=== PATIENT | male | born 1950 | race Caucasian/White ===

== ENCOUNTER → 2018-08-31 | Outpatient (CLI) | payer MEDICARE ==
--- NOTE | 2018-08-31 10:37 | REP ---
HISTORY: Contusion. There is evidence of an old healed distal tibial fracture. There is no acute fracture. The mortise is intact. Electronically Signed by Edwardo Villeda DO 08/31/2018 10:47 A
--- NOTE | 2018-08-31 10:38 | REP ---
HISTORY: Contusion. The bones are demineralized. Degenerative changes seen throughout the foot. There is no acute fracture. Electronically Signed by Edwardo Villeda DO 08/31/2018 10:47 A
== END ==
LOC: M WUC 08:22
PROVIDERS: ATTEND Physician Assistant
DX: S90.01XA Contusion of right ankle, initial encounter (principal); S90.31XA Contusion of right foot, initial encounter; Y92.9 Unspecified place or not applicable; Y93.9 Activity, unspecified

== ENCOUNTER → 2019-02-07 | Outpatient (CLI) | payer MEDICARE ==
[2019-02-07 18:02] LABS: BASO % 0.3 % (0.0-1.0); EOS # 0.1 10^3/uL (0.0-0.5); EOS % 1.2 % (0.0-3.0); HEMATOCRIT 44.5 % (42.0-52.0); HEMOGLOBIN 14.8 g/dl (13.5-17.5); LYMPH # 1.6 10^3/uL (1.5-5.0); LYMPH % 14.4 % (24.0-44.0); MEAN CORPUSCULAR HEMOGLOBIN 31.9 pg (27.0-33.0); MEAN CORPUSCULAR HGB CONC 33.3 g/dl (32.0-36.5); MEAN CORPUSCULAR VOLUME 95.9 fl (80.0-96.0); MONO # 0.6 10^3/uL (0.0-0.8); MONO % 5.3 % (0.0-5.0); NEUTROPHILS # 8.9 10^3/uL (1.5-8.5); NEUTROPHILS % 78.5 % (36.0-66.0); PLATELET COUNT, AUTOMATED 206 10^3/uL (150-450); RED BLOOD COUNT 4.64 10^6/uL (4.30-6.10); WHITE BLOOD COUNT 11.4 10^3/uL (4.0-10.0)
[2019-02-07 18:28] LABS: ALBUMIN 4.5 GM/DL (3.2-5.2); ALT/SGPT 22 U/L (12-78); BILIRUBIN,TOTAL 0.8 MG/DL (0.2-1.0); BLOOD UREA NITROGEN 14 MG/DL (7-18); CALCIUM LEVEL 10.3 MG/DL (8.8-10.2); CARBON DIOXIDE LEVEL 27 MEQ/L (21-32); CHLORIDE LEVEL 107 MEQ/L (98-107); CPK CREATINE PHOSPHOKINASE 72 U/L (39-308); CREATININE FOR GFR 0.86 MG/DL (0.70-1.30); GLOMERULAR FILTRATION RATE > 60.0 (>42); GLUCOSE, FASTING 107 MG/DL (70-100); LIPASE 112 U/L (73-393); POTASSIUM SERUM 4.6 MEQ/L (3.5-5.1); SODIUM LEVEL 140 MEQ/L (136-145)
[2019-02-10 14:12] LABS: Lyme Disease IgG/IgM Antibodie <0.91 ISR (0.00-0.90); Lyme Disease IgM Ab Quantitati <0.80 index (0.00-0.79)
== END ==
LOC: M WUC 16:40
PROVIDERS: ATTEND Physician Assistant
DX: R10.9 Unspecified abdominal pain (principal)

== ENCOUNTER → 2019-02-16 | Outpatient (CLI) | payer MEDICARE ==
[~2019-02-16] MED LIST: PROHANCE 279.3MG/ML 15ML VIAL (A9576) As Ordered ONE; PROHANCE 279.3MG/ML 5ML VIAL (A9576) As Ordered ONE
--- NOTE | 2019-02-16 18:03 | REP ---
Two views orbits/skull: 02/16/2019. Indication: MRI clearance. Comparison: None. Findings: No radiopaque foreign bodies are present to preclude the patient from having the ordered MRI study. No acute osseous or soft tissue abnormalities are detected. Impression: The patient is cleared for MRI with regard to intracranial or orbit metal. Electronically Signed by Juan Bruno DO 02/16/2019 05:54 P
--- NOTE | 2019-02-17 14:05 | REP ---
MRI brain: 02/16/2019. 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 Comparison: 12/17/2012. Technique: Multiplanar short and long TR sequences of the brain were obtained including post-gadolinium images. 20 ml IV ProHance were administered. Findings: The enhancing mass centered within the right cavernous sinus that extends along the lesser wing of the sphenoid, incisura of the tentorium and into the sella remains stable. Loss of the right ICA flow void is again noted. Postoperative sequelae on the right are noted with minimal encephalomalacia/gliosis surrounding the resection cavity of the anterior right temporal lobe. There are no areas of restricted diffusion to suggest an acute infarction. No new areas of pathologic gadolinium enhancement are present. Mild diffuse volume loss is present. There are multiple areas of elevated CT signal throughout the cerebral hemisphere white matter. This is a nonspecific finding, but most consistent with sequelae of chronic microangiopathic ischemic disease. Impression: Stable enhancing neoplasm centered within the right cavernous sinus as described. Reportedly a meningioma. Postoperative sequelae. No acute intracranial process. Volume loss and sequelae of chronic microangiopathic ischemic disease. Electronically Signed by Juan Bruno DO 02/17/2019 01:57 P
== END ==
LOC: M RAD 16:58
PROVIDERS: ATTEND Urology
DX: C61 Malignant neoplasm of prostate (principal); C79.31 Secondary malignant neoplasm of brain; I67.82 Cerebral ischemia
CPT/HCPCS: 70553; A9576

== ENCOUNTER 2020-03-20 13:09 | Inpatient (IN) | payer MEDICARE ==
[~2020-03-20] VITALS: Ht 175.3 cm; Wt 99.1 kg
[2020-03-20] MEDS: SIMVASTATIN 40 MG TAB PO SCH (09:00)
[2020-03-20] MEDS: OMEPRAZOLE 20 MG CAP PO SCH (09:00)
[2020-03-20] MEDS ORDERED: ECOT81TA5 PO (13:38)
[2020-03-20] MEDS ORDERED: PRED5TA PO (13:38)
[2020-03-20] MEDS ORDERED: OMEP-218 PO (13:38)
[2020-03-20] MEDS ORDERED: LITH300C PO (13:38)
[2020-03-20] MEDS ORDERED: [UNRECOGNIZED DRUG - CODE] PO (13:38)
[2020-03-20] MEDS ORDERED: SIMV40TA20 PO (13:38)
[2020-03-20 14:05] LABS: BASO # 0.1 10^3/uL (0.0-0.2); BASO % 0.3 % (0.0-1.0); EOS # 0.2 10^3/uL (0.0-0.5); EOS % 0.7 % (0.0-3.0); HEMATOCRIT 46.2 % (42.0-52.0); HEMOGLOBIN 15.5 g/dl (13.5-17.5); LYMPH % 9.5 % (24.0-44.0); MEAN CORPUSCULAR HEMOGLOBIN 30.9 pg (27.0-33.0); MEAN CORPUSCULAR HGB CONC 33.5 g/dl (32.0-36.5); MONO # 1.9 10^3/uL (0.0-0.8); MONO % 9.1 % (0.0-5.0); NEUTROPHILS # 16.8 10^3/uL (1.5-8.5); NEUTROPHILS % 79.7 % (36.0-66.0); PLATELET COUNT, AUTOMATED 201 10^3/uL (150-450); RED BLOOD COUNT 5.02 10^6/uL (4.30-6.10); WHITE BLOOD COUNT 21.1 10^3/uL (4.0-10.0)
[2020-03-20 14:14] LABS: INR 0.95; PROTHROMBIN TIME 12.9 SECONDS (12.5-14.3)
[2020-03-20 14:31] LABS: ALBUMIN 3.8 GM/DL (3.2-5.2); ALT/SGPT 19 U/L (12-78); BILIRUBIN,DIRECT 0.4 MG/DL (0.0-0.2); BILIRUBIN,TOTAL 1.6 MG/DL (0.2-1.0); BLOOD UREA NITROGEN 10 MG/DL (7-18); CALCIUM LEVEL 9.4 MG/DL (8.8-10.2); CARBON DIOXIDE LEVEL 25 MEQ/L (21-32); CHLORIDE LEVEL 108 MEQ/L (98-107); GLOMERULAR FILTRATION RATE > 60.0 (>42); GLUCOSE, FASTING 112 MG/DL (70-100); LIPASE 52 U/L (73-393); POTASSIUM SERUM 2.8 MEQ/L (3.5-5.1); SODIUM LEVEL 139 MEQ/L (136-145)
[2020-03-20] MEDS ORDERED: ISOVUE-370 76% 100ML VIAL As Ordered ONE (14:38)
[2020-03-20] MEDS ORDERED: KCL 10MEQ/100ML SWI (KRUN) 10 MEQ in IV 1 EA IV ONE (14:45)
--- NOTE | 2020-03-20 15:06 | REP ---
INDICATION: abd pain, leukocytosis r/o infectious process. COMPARISON: None. TECHNIQUE: Helical scanning was acquired and 4 mm axial images are re-formatted. Coronal and sagittal MPR images were generated and reviewed. The contrast enhancement dose is 100 mL of intravenous Isovue 370. 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 There is a noncalcified nodule in the lingula at the left lung base measuring 10 mm in diameter. A 2nd tiny subpleural nodule noncalcified is visible in the right middle lobe. A granulomatous calcification is visible in the right middle lobe as well. Lung bases are otherwise clear. The liver shows diffuse fatty infiltration with area of fat sparing near the gallbladder. There is a hypervascular enhancing nodule in the right lobe of the liver posteriorly measuring 1.7 cm in greatest diameter. The gallbladder is dilated and has wall thickening and wall enhancement with pericholecystic fluid suggestive of cholecystitis. There is pericholecystic fat streaking as well. No biliary ductal dilation is observed. Pancreas is unremarkable. Normal adrenal glands are seen bilaterally. There are granulomatous calcifications in the spleen. Kidneys enhance symmetrically. There is a small cyst in the lower pole of the right kidney. No hydronephrosis is seen. No renal calculus is observed. A normal appendix is seen in the right lower abdomen. Small and large intestinal bowel loops are unremarkable. There is a small quantity of fluid in the pelvic reflections. The prostate is not seen suggesting previous prostatectomy although the patient does not report this. There is left colonic diverticulosis without CT evidence of diverticulitis. No abdominal wall defect is seen. There is evidence of bilateral gynecomastia moderate in degree. IMPRESSION: 1. Findings consistent with acute cholecystitis. The gallbladder is distended shows diffuse wall thickening and contrast enhancement its wall. There is pericholecystic fat streaking and pericholecystic fluid. There is a tiny sliver of fluid in the pelvic reflections. 2. Diffuse fatty infiltration of the liver. 3. 1.7 cm hypervascular liver lesion consistent with hemangioma. This could be further characterized by ultrasound or MRI scanning. 4. Granulomatous calcifications in the spleen and liver and right lung base. 5. There are 2 noncalcified pulmonary nodules visible 1 in the lingula at the left lung base and the other in the right middle lobe. The lingular nodule is 10 mm in greatest diameter. Consider chest CT study for further evaluation and baseline imaging. 6. Bilateral gynecomastia. <Electronically signed by Torito Marinelli > 03/20/20 [id number]
[2020-03-20] MEDS ORDERED: PIPERACILLIN/TAZOBACTAM SOD 3.375 GM in D5W MINI-BAG PLUS 50 ML IV ONE (15:15)
[2020-03-20] MEDS ORDERED: PROMETHAZINE INJ 25 MG/ML VIAL (J2550) IV ONE (15:30)
[2020-03-20] MEDS ORDERED: MORPHINE 4 MG/ML 1ML VIAL/SYRINGE (J2270) IV ONE (15:30)
[2020-03-20] MEDS ORDERED: NS 1,000 ML IV SCH ×2 (15:30→16:30)
[2020-03-20 15:47] LABS: MAGNESIUM LEVEL 1.9 MG/DL (1.8-2.4)
[2020-03-20] MEDS ORDERED: CENT1TAB PO (15:51)
[2020-03-20] MEDS ORDERED: ONDANSETRON 4MG/2ML VIAL IV PRN (16:15)
[2020-03-20] MEDS: PIPERACILLIN/TAZOBACTAM SOD 3.375 GM in D5W MINI-BAG PLUS 50 ML IV SCH ×2 (16:39→21:29)
[2020-03-20] MEDS: KCL 10MEQ/100ML SWI (KRUN) 10 MEQ in IV 1 EA IV SCH ×3 (16:40→20:16)
--- NOTE | 2020-03-20 17:25 | REP ---
INDICATION: Pre-op. COMPARISON: Comparison chest x-ray January 29, 2016. TECHNIQUE: Two views.. FINDINGS: Mild cardiomegaly is observed. Pulmonary vasculature is is not increased. Right hemidiaphragm is slightly elevated unchanged. Pleural angles are sharp. No infiltrate is seen. No significant bony abnormality. IMPRESSION: Mild cardiomegaly. Otherwise no acute disease.. <Electronically signed by Torito Marinelli > 03/20/20 [id number]
--- NOTE | 2020-03-20 17:33 | HPEPDOC ---
General Date of Admission Mar 20, 2020 Date of Service: Mar 20, 2020 Attending Physician: KRYSTAL BRIGHT DO Chief Complaint The patient is a 70-year-old male admitted with a reason for visit of Back Inj ury. Source: Patient History of Present Illness Mr. Espinoza is a 70-year-old male with prostate cancer is here for back pain and found to have acute cholecystitis. He doesn't remember when his abdominal pain initially started. He says that fatty foods sometimes mixes pains worse. 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 He did some heavy lifting and hurt his back. In addition, abdominal pain worsened. The pain was right-sided and rated as 8 out of 10 pain. The pain radiated towards the center and towards his back. He became more nauseous and was unable to tolerate food yesterday or today. There is no improvement in his symptoms, and he decided to come to the ED. While in the ED, total bilirubin was elevated and CT of abdomen and pelvis demonstra manoj acute cholecystitis without CBD dilatation. Then, general surgery was consulted. Plan for surgery tomorrow. NPO except for meds. I spoke with the patient he denied any history of heart attacks, CHF, stroke, or diabetes. He also denied any history of A. fib. He doesn't climb stairs, but is able to walk from one end of [facility] to the other without shortness of breath or chest pain. Denies any active chest pain or dyspnea. We'll order chest x-ray to complete preoperative workup Home Medications Scheduled Abiraterone Acetate (Zytiga) 500 Mg Tablet, 1,000 MG PO DAILY, (Reported) TAKE ON AN EMPTY STOMACH [place] Carbonate ([place] Carbonate) 300 Mg Capsule, 600 MG PO BID, (Reported) Multivit-Min/FA/Lycopen/Lutein (Centrum Silver Tablet) 1 Each Tablet, 1 TAB PO DAILY, (Reported) Omeprazole (Omeprazole) 20 Mg Capsule.dr, 20 MG PO DAILY, (Reported) Prednisone (Prednisone) 5 Mg Tablet, 5 MG PO BID, (Reported) Simvastatin (Simvastatin) 40 Mg Tablet, 40 MG PO DAILY, (Reported) USUALLY AROUND LUNCH Scheduled PRN Aspirin (Ecotrin) 81 Mg Tablet.dr, 162 MG PO DAILY PRN for PAIN, (Reported) Allergies Coded Allergies: No Known Allergies (Unverified , 03/20/20) Past Medical History Medical History 1. Prostate Ca 2. Cancer behind right eye 3. Hyperlipidemia 4. Bipolar Surgical History 1. Brain surgery Family History Mother still alive, she's 92 year old. Denies past medical history Father , at the age of 82. Denies past medical history Social History * Smoker: former Smoker (Quit 28 year ago, smoked for 10 years, a couple packs per day) Alcohol: Denies (Former drinker, quit 28 years ago too) Drugs: denies A-FIB/CHADSVASC A-FIB History Current/History of A-Fib/PAF?: No Review of Systems Constitutional: Denies: Chills, Fever Eyes: Denies: Vision change ENT: Denies: Sore Throat Skin: Denies: Rash Pulmonary: Denies: Dyspnea Cardiovascular: Denies: Chest Pain, Lt Headedness Gastrointestinal: Reports: Nausea, Abdominal Pain (Right upper quadrant, radiates towards the center) Genitourinary: Denies: Dysuria Hematologic: Denies: Bruising Endocrine: Denies: Polydipsia, Polyphagia Physical Examination General Exam: Positive: Alert, Cooperative Eye Exam: Positive: EOMI; Negative: Sclera icteric ENT Exam: Positive: Atraumatic Neck Exam: Positive: Supple Chest Exam: Positive: Clear to auscultation Heart Exam: Positive: Rate Normal, Regular Rhythm Abdomen Exam: Positive: Normal bowel sounds, Soft, Tenderness Extremity Exam: Negative: Edema Neuro Exam: Positive: Normal Speech, Cranial Nerves 3-12 NL Psych Exam: Positive: Mental status NL, Mood NL, Oriented x 3 Vital Signs Vital Signs Date Time Temp Pulse Resp B/P (MAP) Pulse Ox O2 Delivery O2 Flow Rate FiO2 03/20/20 16:12 18 03/20/20 13:39 Room Air 03/20/20 13:39 03/20/20 13:10 98.7 89 97 Laboratory Data Labs 24H Laboratory Tests 2 03/20/20 13:45: Immature Granulocyte % (Auto) 0.7, Neutrophils (%) (Auto) 79.7H, Lymphocytes (%) (Auto) 9.5L, Monocytes (%) (Auto) 9.1H, Eosinophils (%) (Auto) 0.7, Basophils (%) (Auto) 0.3, Neutrophils # (Auto) 16.8H, Lymphocytes # (Auto) 2.0, Monocytes # (Auto) 1.9H, Eosinophils # (Auto) 0.2, Basophils # (Auto) 0.1, Nucleated Red Blood Cells % (auto) 0.0, Prothrombin Time 12.9, Prothromb Time International Ratio 0.95, Anion Gap 6L, Glomerular Filtration Rate > 60.0, Calcium Level 9.4, Magnesium Level 1.9, Total Bilirubin 1.6H, Direct Bilirubin 0.4H, Aspartate Am joey Transf (AST/SGOT) 10, Alanine Aminotransferase (ALT/SGPT) 19, Alkaline Phosphatase 59, Total Protein 7.0, Albumin 3.8, Albumin/Globulin Ratio 1.2, Lipase 52L 03/20/20 13:53: Urine Color YELLOW, Urine Appearance HAZY, Urine pH 6.0, Urine Specific [place] 1.014, Urine Protein NEGATIVE, Urine Glucose (UA) NEGATIVE, Urine Ketones NEGATIVE, Urine Blood 1+H, Urine Nitrite NEGATIVE, Urine Bilirubin NEGATIVE, Urine Urobilinogen 4.0H, Urine Leukocyte Esterase NEGATIVE, Urine WBC (Auto) 6H, Urine RBC (Auto) 6H, Urine Hyaline Casts (Auto) 0, Urine Bacteria (Auto) NEGATIVE, Urine Squamous Epithelial Cells 1, Urine Mucus (Auto) SMALL, Urine Sperm (Auto) 03/20/20 15:24: Lactic Acid Level 2.1*H 03/20/20 15:44: CBC/BMP Laboratory Tests 03/20/20 13:45 Microbiology Microbiology 03/20/20 Blood Culture, Received Pending 03/20/20 Blood Culture, Received Pending Assessment/Plan Mr. Espinoza is a 70-year-old male with prostate cancer is here for back pain and found to have acute cholecystitis. General surgery, Dr. Hernandez has been consulted and is planning for surgery tomorrow. NPO at this time due to nausea and inability to tolerate food. Otherwise, he has hypokalemia. EKG did not demonstrate atrial fibrillation, but PVC which may be secondary to electrolyte imbalance. Will replete electrolytes and optimize patient for surgery. RCRI score of 0 (not high risk surgery, denies ischemic heart disease, CHF, CVA, no insulin or CKD). Ambulates without chest pain or dyspnea. No active chest pain or dyspnea. Will order CXR to complete work up. If CXR is clear, there is no c ontraindications to surgery. Plan / VTE VTE Prophylaxis Ordered?: Yes Plan Plan 1. Acute cholecystitis -Right upper quadrant pain with tenderness. CT abd consistent with cholecystitis -CBD not dilatated, AST and ALT not elevated -Plan for surgery tomorrow by Dr. Hernandez -NPO except medication -Zosyn for antibiotics -Zofran for nausea -IVF 2. Hypokalemia -Has not been able to tolerate food -Replete with K-run -Magnesium normal -Monitor on tele 3. Bipolar -Continue lithium -Monitor renal function 4. Hyperlipidemia -Continue simvastatin 5. GERD -Continue omeprazole 6. DVT ppx -SCD and TEDs Disposition: Plan for surgery tomorrow KRYSTAL BRIGHT DO Mar 20, 2020 16:44
[2020-03-20 17:50] VITALS: BP 118/79
--- NOTE | 2020-03-20 19:38 | ECGEPIP ---
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 Order Number: [id number] Reading MD: Macario Burch Measurements Intervals [place] Rate: 82 P: MS: 0 QRS: -11 QRSD: 148 T: 130 QT: 409 QTc: 479 Interpretive Statements PROBABLE SINUS RHYTHM W PACS LEFT BUNDLE BRANCH BLOCK LEFT AXIS DEVIATION Electronically Signed on 03-20-2020 19:38:16 EST by Macario Burch
[2020-03-20] MEDS: predniSONE 5 MG TAB PO SCH (20:16)
[2020-03-20] MEDS: LITHIUM CARBONATE 300 MG CAP PO SCH (20:16)
[2020-03-20] MEDS: ACETAMINOPHEN TAB 650MG DOSE (2X325MG) PO PRN (20:59)
[2020-03-20] MEDS: KCL 40MEQ in NS 1000ML 1,000 ML IV SCH (21:29)
[2020-03-20 22:00] VITALS: BP 128/70
[2020-03-21 00:47] LABS: BLOOD UREA NITROGEN 12 MG/DL (7-18); CALCIUM LEVEL 8.7 MG/DL (8.8-10.2); CARBON DIOXIDE LEVEL 23 MEQ/L (21-32); CHLORIDE LEVEL 111 MEQ/L (98-107); CREATININE FOR GFR 0.84 MG/DL (0.70-1.30); GLOMERULAR FILTRATION RATE > 60.0 (>42); GLUCOSE, FASTING 124 MG/DL (70-100); POTASSIUM SERUM 3.5 MEQ/L (3.5-5.1); SODIUM LEVEL 140 MEQ/L (136-145)
[2020-03-21] MEDS: PIPERACILLIN/TAZOBACTAM SOD 3.375 GM in D5W MINI-BAG PLUS 50 ML IV SCH ×4 (04:09→21:29)
[2020-03-21] MEDS: ACETAMINOPHEN TAB 650MG DOSE (2X325MG) PO PRN ×2 (04:59→21:29)
[2020-03-21 05:55] LABS: HEMATOCRIT 41.9 % (42.0-52.0); HEMOGLOBIN 13.7 g/dl (13.5-17.5); MEAN CORPUSCULAR HEMOGLOBIN 30.2 pg (27.0-33.0); MEAN CORPUSCULAR HGB CONC 32.7 g/dl (32.0-36.5); MEAN CORPUSCULAR VOLUME 92.5 fl (80.0-96.0); PLATELET COUNT, AUTOMATED 170 10^3/uL (150-450); RED BLOOD COUNT 4.53 10^6/uL (4.30-6.10); WHITE BLOOD COUNT 11.8 10^3/uL (4.0-10.0)
[2020-03-21 06:00] VITALS: BP 144/84
[2020-03-21 06:27] LABS: ALBUMIN 3.4 GM/DL (3.2-5.2); ALT/SGPT 170 U/L (12-78); BILIRUBIN,TOTAL 2.1 MG/DL (0.2-1.0); BLOOD UREA NITROGEN 13 MG/DL (7-18); CALCIUM LEVEL 8.9 MG/DL (8.8-10.2); CARBON DIOXIDE LEVEL 23 MEQ/L (21-32); CHLORIDE LEVEL 113 MEQ/L (98-107); CREATININE FOR GFR 0.84 MG/DL (0.70-1.30); GLOMERULAR FILTRATION RATE > 60.0 (>42); GLUCOSE, FASTING 103 MG/DL (70-100); POTASSIUM SERUM 3.6 MEQ/L (3.5-5.1); SODIUM LEVEL 141 MEQ/L (136-145); TOTAL PROTEIN 6.7 GM/DL (6.4-8.2)
[2020-03-21] MEDS ORDERED: MORPHINE 2 MG/ML 1ML VIAL (J2270) IV PRN (06:45)
[2020-03-21] MEDS ORDERED: POTASSIUM CHLORIDE 10 MEQ SR TABLET PO ONE (08:00)
[2020-03-21 08:59] LABS: BILIRUBIN,DIRECT 0.6 MG/DL (0.0-0.2)
[2020-03-21] MEDS ORDERED: PNEUMOCOCCAL VACCINE 0.5ML SYRINGE (PNEUMOVAX 23) IM ONE (09:00)
[2020-03-21] MEDS ORDERED: MORPHINE 2 MG/ML 1ML VIAL (J2270) IV ONE ×2 (09:30)
[2020-03-21] MEDS ORDERED: SODIUM CHLORIDE 0.9% INJ 10 ML SYR IV ONE (10:00)
[2020-03-21] MEDS ORDERED: INDOCYANINE GREEN 25MG VIAL (IC-GREEN) IV ONE (10:00)
[2020-03-21] MEDS: predniSONE 5 MG TAB PO SCH ×2 (10:03→20:33)
[2020-03-21] MEDS: OMEPRAZOLE 20 MG CAP PO SCH (10:03)
[2020-03-21] MEDS: SIMVASTATIN 40 MG TAB PO SCH (10:04)
[2020-03-21] MEDS: LITHIUM CARBONATE 300 MG CAP PO SCH ×2 (10:04→20:33)
[2020-03-21] MEDS: KCL 40MEQ in NS 1000ML 1,000 ML IV SCH ×2 (10:05→20:34)
--- NOTE | 2020-03-21 10:28 | IPNPDOC ---
Text Note Date of Service The patient was seen on 03/21/20. NOTE SUBJECTIVE: No acute events overnight, including telemetry. Patient did require PRN morphine for pain earlier this morning. Anticipating surgery around 1200 today. Pt continues to report RUQ pain with posterior radiation. Pain is responsive to morphine IV. Denies CP, SOB. Denies any n/v/d/c. No difficulty urinating. OBJECTIVE: Vitals: Please see below Gen.: Patient is interviewed and examined in his hospital room. Patient simply seated upright in his bedside chair, in no acute distress. 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 HEENT: Normocephalic, atraumatic, EOMI, sclera nonicteric without conjunctival injection or pallor. Ptosis noted. His membranes are moist. CVS: Regular rate and rhythm, without murmur. Respiratory: Clear to auscultation bilaterally both anterior and posterior lung campbell. Abdomen: Continue right upper quadrant tenderness with some posterior radiation. No apparent guarding or rigidity. No masses or organomegaly present. Soft and nontender and remaining quadrants. Bowel sounds are present. Extremities: No edema, no calf tenderness bilaterally. Posterior tibial and radial pulses are 2+ bilaterally. Neuro: CN III-XII grossly intact, strength intact, no dysphasia or dysarthria ASSESSMENT: Mr. Espinoza is a 70-year-old male with prostate cancer is here for back pain and found to have acute cholecystitis. General surgery, Dr. Hernandez has been consulted and is planning for surgery tomorrow. NPO at this time due to nausea and inability to tolerate food. Otherwise, he has hypokalemia. EKG did not demonstrate atrial fibrillation, but PVC which may be secondary to electrolyte imbalance. Will replete electrolytes and optimize patient for surgery. RCRI score of 0 (not high risk surgery, denies ischemic heart disease, CHF, CVA, no insulin or CKD). Ambulates without chest pain or dyspnea. No active chest pain or dyspnea. PLAN: #Acute cholecystitis, -Patient continues with right upper quadrant pain and tenderness. CT abdomen performed yesterday is consistent with cholecystitis. -Cholecystectomy planned for [address] Hernandez. -IV morphine for pain -NPO except meds #Transaminitis -AST/ALT of 127/170 -Likely secondary to persistent cholecystitis. -Question whether patient's presentation is regressed to choledocholithiasis. -Continue to monitor LFTs. #Hypokalemia -Pt placed on tele for monitoring. No events overnight. -Normalized, will continue to monitor -Mg WNL #Bipolar -Continue lithium -Monitor renal function #Hyperlipidemia -Continue simvastatin #GERD -Continue omeprazole DVT: SCD, TEDs in anticipation of surgery CODE STATUS: Full Code DISPOSITION: Pending post-op improvement. VS,Fishbone, I+O VS, Fishbone, I+O Laboratory Tests 03/20/20 13:45 03/20/20 23:53 03/21/20 05:13 Vital Signs Date Time Temp Pulse Resp B/P (MAP) Pulse Ox O2 Delivery O2 Flow Rate FiO2 03/21/20 07:02 16 03/21/20 06:00 99.0 60 144/84 (104) 98 Room Air I&O- Last 24 Hours up to 6 AM 03/21/20 06:00 Intake Total 1275 ml Output Total 400 ml Balance 875 ml GME ATTESTATION GME ATTESTATION My faculty preceptor for this patient encounter was physically present during the encounter and was fully available. All aspects of the patient interview, examination, medical decision making process, and medical care plan development were reviewed and approved by the faculty preceptor. The faculty preceptor is aware and concurs with the plan as stated in the body of this note and will attest to such by his/her cosignature. ATTENDING NOTE I, Saul Fagan, saw and evaluated the patient. I agree with the finding and the plan of care as documented in the resident note. BULL THOMSON DO Mar 21, 2020 10:28 SAUL FAGAN DO Mar 21, 2020 19:24
--- NOTE | 2020-03-21 11:26 | CR.PDOC ---
General Surgery Consultation Date of Consultation 03/21/20 History and Physical CONSULT REPORT FOR: Dr. Fagan (hospitalist ervin) REASON FOR CONSULTATION: abdominal pain, cholecystitis HISTORY OF PRESENT ILLNESS: I was asked to consult on Mr. Espinoza is a 70-year-old gentleman from [place] who presented with about a 2 day history of severe epigastric and right upper quadrant pain and discomfort. He reports that this started happening about mid evening. He felt nauseated and actually tried to make himself throw up with some relief of his symptoms with the pain. Through the evening and through to the crib tender. No fevers or chills reported. No prior episodes of similar symptoms being reported. Due to the severity of the discomfort he presented to the emergency room. He was found to have evidence of acute cholecystitis on CT. PAST MEDICAL HISTORY: 1. history of prostate cancer s/p prostatectomy, radiation now on hormonal therapy 2. history of meningioma s/p cranitomy 3. hyperlipidemia. 4. bipolar disorder PAST SURGICAL HISTORY: INCLUDES: 1. robotic assisted radical prostatectomy 2. craniotomy resection of meningioma x 2 ALLERGIES: Please see below. HOME MEDICATIONS: Please see below. REVIEW OF SYSTEMS: GENERAL: Denies chills, reports weight gain, reports feeling febrile yesterday. HEENT: Denies blurred vision and double vision. Denies ear symptoms. Denies hoarseness. NECK: Denies any neck pain]. CARDIOVASCULAR: [Denies chest pain and palpitations]. MUSCULOSKELETAL: [Denies arthralgias, back pain and thrombophlebitis]. SKIN: [Denies rash]. NEUROLOGIC: [Denies headache, stroke and transient ischemic attack]. PSYCHIATRIC: [Denies anxiety and depression]. ENDOCRINE: [Denies thyroid disease]. HEMATOLOGY/ONCOLOGY: [Denies bleeding or clotting disorder]. HEART: [Denies any chest pains, palpitations, paroxysmal dyspnea, orthopnea]. PULMONARY: [Denies chronic cough, dyspnea and wheezing]. GASTROINTESTINAL: [Denies rectal bleeding, family history of colon cancer, constipation, diarrhea, dysphagia, heartburn and jaundice]. GENITOURINARY: [Denies dysuria, frequency, hematuria and nocturia]. ENDOCRINE: [Denies polydipsia, polyphagia, polyuria, heat or cold intolerance]. INFECTIOUS: [Denies any recent upper respiratory tract infection, UTI, need for use of antibiotics]. NUTRITION: [Reports good appetite]. PHYSICAL EXAMINATION: VITALS SIGNS: Please see below. GENERAL APPEARANCE:uncomfortable in appearance, dry skin. not in cardiorespiratory distress SKIN: dry, no jaundice. HEENT: right eyelid drooping, anicteric sclerae, slight depressed right parietal scalp. NECK: Supple, no thyromegaly. No obvious jugular venous distention. LUNGS: Clear to auscultation bilaterally. No wheezing appreciated. HEART: No chest wall abnormalities. Regular rate and rhythm with no murmurs appreciated. ABDOMEN: Abdomen is very protuberant and round abdomen, soft, distended. small vertical supraumbilical incision no hernia, few port sites, no hernia. Tender over right upper quadrant area and epigastric area with guarding. Positive mishra sign. . EXTREMITIES: no significant extremity edema ANCILLARIES: . LABORATORY DATA: Please see below. IMAGING STUDIES: CT scan abdomen and pelvis US gall bladder IMPRESSION AND PLAN: Acute Cholecystitis Patient symptoms consistent with acute cholecystitis. He is quite tender over the right upper quadrant area along with a diagnosis of 21,000. His LFTs remained normal save for mild elevation of the total bilirubin which is primarily indirect, thus I don't think there is involvement of the colon bile duct stone or of cholangitis. He is admitted under the hospitalist service and started IV antibiotics. He has been getting Zosyn 3.375 g IV. I'll set him up for laparoscopic cholecystectomy. If the robot is available we will use robot which will hopefully help us identify the biliary tree to avoid bile duct injury which is primary complication be are trying to avoid especially in acute gallbladder cases. I have spoken to him about scheduling him for cholecys tectomy. I discussed with the patient the details of the proposed procedure, the benefits of performing the procedure, the most common risks on doing the procedure. This may include risks of bleeding, infection, bile duct injury, bile leakage, injury to nearby bowels and blood vessels, and risks of general anesthesia. I have given him a chance to ask questions, voice out concerns. Patient has agreed to proceed Vital Signs Vital Signs Date Time Temp Pulse Resp B/P (MAP) Pulse Ox O2 Delivery O2 Flow Rate FiO2 03/21/20 09:59 18 Room Air 03/21/20 06:00 99.0 60 144/84 (104) 98 I&Os I&O- Last 24 Hours up to 6 AM 03/21/20 06:00 Intake Total 1275 ml Output Total 400 ml Balance 875 ml Laboratory Data Labs 24H Laboratory Tests 2 03/20/20 13:45: Immature Granulocyte % (Auto) 0.7, Neutrophils (%) (Auto) 79.7H, Lymphocytes (%) (Auto) 9.5L, Monocytes (%) (Auto) 9.1H, Eosinophils (%) (Auto) 0.7, Basophils (%) (Auto) 0.3, Neutrophils # (Auto) 16.8H, Lymphocytes # (Auto) 2.0, Monocytes # (Auto) 1.9H, Eosinophils # (Auto) 0.2, Basophils # (Auto) 0.1, Nucleated Red Blood Cells % (auto) 0.0, Prothrombin Time 12.9, Prothromb Time International Ratio 0.95, Anion Gap 6L, Glomerular Filtration Rate > 60.0, Calcium Level 9.4, Magnesium Level 1.9, Total Bilirubin 1.6H, Direct Bilirubin 0.4H, Aspartate Amino Transf (AST/SGOT) 10, Alanine Aminotransferase (ALT/SGPT) 19, Alkaline Phosphatase 59, Total Protein 7.0, Albumin 3.8, Albumin/Globulin Ratio 1.2, Lipase 52L 03/20/20 13:53: Urine Color YELLOW, Urine Appearance HAZY, Urine pH 6.0, Urine Specific [place] 1.014, Urine Protein NEGATIVE, Urine Glucose (UA) NEGATIVE, Urine Ketones NEGATIVE, Urine Blood 1+H, Urine Nitrite NEGATIVE, Urine Bilirubin NEGATIVE, Urine Urobilinogen 4.0H, Urine Leukocyte Esterase NEGATIVE, Urine WBC (Auto) 6H, Urine RBC (Auto) 6H, Urine Hyaline Casts (Auto) 0, Urine Bacteria (Auto) NEGATIVE, Urine Squamous Epithelial Cells 1, Urine Mucus (Auto) SMALL, Urine Sperm (Auto) 03/20/20 15:24: Lactic Acid Level 2.1*H 03/20/20 15:44: Coronavirus (COVID-19)(PCR) NEGATIVE 03/20/20 20:08: Lactic Acid Followup at 4 Hours 1.2 03/20/20 23:53: Anion Gap 6L, Glomerular Filtration Rate > 60.0, Calcium Level 8.7L 03/21/20 05:13: Anion Gap 5L, Glomerular Filtration Rate > 60.0, Calcium Level 8.9, Nucleated Red Blood Cells % (auto) 0.0, Total Bilirubin 2.1H, Direct Bilirubin 0.6H, Aspartate Amino Transf (AST/SGOT) 127H, Alanine Aminotransferase (ALT/SGPT) 170H, Alkaline Phosphatase 95, Total Protein 6.7, Albumin 3.4, Albumin/Globulin Ratio 1.0 CBC/BMP Laboratory Tests 03/20/20 13:45 03/20/20 23:53 03/21/20 05:13 Microbiology Microbiology 03/20/20 Blood Culture, Received Pending 03/20/20 Blood Culture, Received Pending Home Medications Scheduled Abiraterone Acetate (Zytiga) 500 Mg Tablet, 1,000 MG PO DAILY, (Reported) TAKE ON AN EMPTY STOMACH [place] Carbonate ([place] Carbonate) 300 Mg Capsule, 600 MG PO BID, (Reported) Multivit-Min/FA/Lycopen/Lutein (Centrum Silver Tablet) 1 Each Tablet, 1 TAB PO DAILY, (Reported) Omeprazole (Omeprazole) 20 Mg Capsule.dr, 20 MG PO DAILY, (Reported) Prednisone (Prednisone) 5 Mg Tablet, 5 MG PO BID, (Reported) Simvastatin (Simvastatin) 40 Mg Tablet, 40 MG PO DAILY, (Reported) USUALLY AROUND LUNCH Scheduled PRN Aspirin (Ecotrin) 81 Mg Tablet.dr, 162 MG PO DAILY PRN for PAIN, (Reported) Allergies Coded Allergies: No Known Allergies (Unverified , 03/20/20) NENITA PERAZA MD Mar 21, 2020 11:26
[2020-03-21] MEDS ORDERED: ROCURONIUM BROMIDE 50 MG/5 ML VIAL As Ordered ONE ×3 (12:00→15:40)
[2020-03-21] MEDS ORDERED: MIDAZOLAM INJ 2MG/2ML VIAL (J2250 PER 1MG) As Ordered ONE (12:00)
[2020-03-21] MEDS ORDERED: LIDOCAINE 2% 100MG/5ML SDV (FOR ANES.) As Ordered ONE (12:00)
[2020-03-21] MEDS ORDERED: fentaNYL 250 MCG/5 ML INJECTION (J3010) As Ordered ONE (12:00)
[2020-03-21] MEDS ORDERED: propofoL 200 MG/20 ML VIAL As Ordered ONE (12:00)
[2020-03-21] MEDS ORDERED: LIDOCAINE 1% SDV 30ML VIAL As Ordered ONE (12:19)
[2020-03-21] MEDS ORDERED: BUPIVACAINE HCL 0.25% 30ML VIAL As Ordered ONE (12:19)
[2020-03-21] MEDS ORDERED: dexameTHASONE 4 MG/ML 1ML VIAL (J1100 PER 1MG) As Ordered ONE (12:56)
[2020-03-21] MEDS ORDERED: PHENYLephrine HCL 500 MCG/5 ML (100MCG/ML) SYRINGE (J2370) As Ordered ONE ×2 (12:58→17:08)
[2020-03-21] MEDS ORDERED: ONDANSETRON 4MG/2ML VIAL As Ordered ONE (13:27)
[2020-03-21] MEDS ORDERED: ACETAMINOPHEN 1000MG 100ML IV BTL (OFIRMEV) (J0131 PER 10MG) As Ordered ONE (13:27)
[2020-03-21] MEDS ORDERED: fentaNYL 100 MCG/2 ML INJECTION (J3010) As Ordered ONE (15:40)
[2020-03-21] MEDS ORDERED: ZOSYN 3.375GM VIAL (J2543) As Ordered ONE (16:32)
[2020-03-21] MEDS ORDERED: HYDROmorphone HCL 2 MG/ML 1ML VIAL (J1170) As Ordered ONE (17:03)
[2020-03-21] MEDS ORDERED: KETOROLAC 30 MG/ML 1ML VIAL IV PRN (18:45)
[2020-03-21] MEDS ORDERED: PERCOCET 5MG/325MG TAB PO PRN ×2 (18:45→19:00)
[2020-03-21] MEDS ORDERED: METOCLOPRAMIDE INJ 10MG/2ML VIAL (J2765 PER 1) IV PRN (19:00)
[2020-03-21] MEDS ORDERED: ONDANSETRON 4MG/2ML VIAL IV PRN (19:00)
[2020-03-21] MEDS ORDERED: LR 1,000 ML IV SCH (19:00)
[2020-03-21] MEDS ORDERED: fentaNYL 100 MCG/2 ML INJECTION (J3010) IV PRN (19:00)
[2020-03-21 20:15] VITALS: BP 128/89
[2020-03-21 20:45] VITALS: BP 126/88
[2020-03-21 21:15] VITALS: BP 108/82
[2020-03-21 22:15] VITALS: BP 112/73
[2020-03-21 23:15] VITALS: BP 108/67
[2020-03-22 00:15] VITALS: BP 123/83
[2020-03-22 01:15] VITALS: BP 112/75
[2020-03-22] MEDS: KCL 40MEQ in NS 1000ML 1,000 ML IV SCH (03:00)
[2020-03-22] MEDS: PIPERACILLIN/TAZOBACTAM SOD 3.375 GM in D5W MINI-BAG PLUS 50 ML IV SCH ×4 (04:27→21:26)
[2020-03-22 06:00] VITALS: BP 116/74
[2020-03-22] MEDS ORDERED: SALIVA SUBSTITUTE(MOUTHKOTE) BTL MT PRN (06:45)
[2020-03-22 06:50] LABS: HEMATOCRIT 32.7 % (42.0-52.0); MEAN CORPUSCULAR HEMOGLOBIN 31.2 pg (27.0-33.0); MEAN CORPUSCULAR HGB CONC 33.3 g/dl (32.0-36.5); MEAN CORPUSCULAR VOLUME 93.7 fl (80.0-96.0); PLATELET COUNT, AUTOMATED 140 10^3/uL (150-450); RED BLOOD COUNT 3.49 10^6/uL (4.30-6.10); WHITE BLOOD COUNT 14.2 10^3/uL (4.0-10.0)
[2020-03-22 06:54] LABS: HEMOGLOBIN 10.9 g/dl (13.5-17.5)
[2020-03-22 07:20] LABS: ALBUMIN 2.6 GM/DL (3.2-5.2); ALT/SGPT 100 U/L (12-78); BILIRUBIN,TOTAL 1.1 MG/DL (0.2-1.0); BLOOD UREA NITROGEN 14 MG/DL (7-18); CALCIUM LEVEL 7.6 MG/DL (8.8-10.2); CARBON DIOXIDE LEVEL 23 MEQ/L (21-32); CHLORIDE LEVEL 114 MEQ/L (98-107); CREATININE FOR GFR 0.76 MG/DL (0.70-1.30); GLOMERULAR FILTRATION RATE > 60.0 (>42); GLUCOSE, FASTING 142 MG/DL (70-100); POTASSIUM SERUM 3.9 MEQ/L (3.5-5.1); SODIUM LEVEL 141 MEQ/L (136-145); TOTAL PROTEIN 5.7 GM/DL (6.4-8.2)
--- NOTE | 2020-03-22 07:28 | ROOPDOC ---
[facility] Report Of Operation Report of Operation DATE OF PROCEDURE: 03/8720 PREPROCEDURE DIAGNOSES: Acute Cholecystitis. POSTPROCEDURE DIAGNOSES: Acute over Chronic Cholecystitis, hydrops of gallbladder. PROCEDURE: Robotic Assisted Cholecystectomy with ICG use. bilateral transversus abdominis plane block with 1%lidocaine, 1/4% Marcaine, laparoscope guided SURGEON: Guerrero Hernandez MD PRODUCTION DEPARTMENT SUPERVISOR: Intraoperative consult with Dr. Kraft ANESTHESIA: General Anesthesia. ESTIMATED BLOOD LOSS: Approximately 500 mL (including bile spillage) COMPLICATIONS: none, Patient hemodynamically stable, extubated to PACU. REMARKS: 70 M admitted yesterday with sudden onset of epigastric and RUQ pain, wbc 21K evidence for inflammation of gb, no stones identified on CT. PROCEDURE NOTE: markedly thickened, distended gb, hydropic, acute inflammation , edema over chronically thickened wall, no gross perforation, very thick omentum obstructing view, mild hepatomegaly, obese, rounded abdomen. DESCRIPTION OF PROCEDURE: Patient is receiving zosyn 3.375 gm IV q 6hrs for acute cholecystits. I gave him 5 mg of ICG was given intravenously after intubation. He was brought to the operating room, laid supine on the table, compression boots placed for DVT prophylaxis. General endotracheal anesthesia started. His abdomen then prepped and draped in usual sterile fashion. Surgical timeout was performed prior to confirm right procedure, right patient identification and other necessary information prior to starting surgery. He has a very round, protuberant abdomen. Entry into the abdomen done through an incision slightly to the left of the umbilical cleft. A Veress needle was inserted with a controlled fashion. CO2 insufflation started to pressure 15 mmH g. Using the same incision an 8 mm robotic trochar was placed under direct vision of a laparoscope. The area underneath the insertion site was inspected and no injury found. With this camera postion, only the edge of the liver is seen. He has thick omentum covering all the intestines and the gallbladder. He was then placed in steep reverse Trendelenburg at about 15. The gallbladder remains covered with omentum.. His right side was tilted up to further expose the gallbladder to no avail. Under direct vision 3 more 8 mm trochars were placed along a row at level to the camera port site at the anterior axillary line, right midclavicular line and left mid clavicular line. A transversus abdominis plane block was then performed bilaterally using the lidocaine/ma rcaine mixture under laparoscopic guidance. The da Betzy robot tower was then maneuvered in place and the trochards docked to the robot. I used a prograsp, forced bipolar, and hook cautery for the procedure with a 30 robotic camera. I unscrubbed and assumed control of the camera and instruments at the surgeon's console. Operative findings: He has an enlarged liver, fatty replaced and this goes deep underneath the cavity of his costal cartilage. I repositioned him to a deeper reverse Trendelenburg to drop the liver further. Gallbladder remains not visualized covered with omentum that is inflamed. The omental adhesions were lysed with cautery to expose the fundus of the gallbladder. The gallbladder is tensely distended. Wall is thick which looks to be a combination of chronic thickness as well as severe acute inflammation with gallbladder wall edema, edema of the overlying peritoneum, duskiness of the wall and peritoneum though I did not see any areas of necrosis. This was hard to manipulate and also his omentum is obstructing my view as this was thick. I placed some cottonoids for internal retraction of the omentum. The created hole at the fundus and aspirated clear nonbilious fluid consistent with hydrops of the gallbladder. This had the gallbladder partially decompressed. This allowed me to start superior retraction of the gallbladder and slight do this I continued to lyse the omental adhesions. Even with this, pushing the gallbladder superiorly is not allowing me to visualize the neck of the gallbladder secondary to his body habitus, enlarged liver, distended gallbladder and extension of the lower costal cartilage down below as well as the thickened omentum. I switched to a top down approach to try to get more retraction of the gallbladder superiorly. Posterior wall of the gallbladder is intact but highly inflamed and adhered to the liver bed with continued oozing at the liver bed. I switched him lateral to medial and vice versa when there is too much oozing which I temporarily control with some Surgicel left at the liver bed as well as local pressure and cautery. This allowed me to get good amount of the fundus freed up for further superior retraction. With this I could barely make up the infundibulum. ICG did not help as the whole of the gallbladder did not transilluminate. The course of the colon bile duct is not visualized due to the enlargement of the gallbladder and the thickened omentum on my way. I proceeded continuing the top down approach mainly concentrating laterally as this is a safer and more accessible area. Again got met by occasional losing for which at the stop and get to the other side reseed. With this approach I was able to free up partially the midportion of the gallbladder which I then connected the previous posterior fundal dissection. After a couple of hours I was now able to visualize the fundus. This area remains distended though I could not feel any st one. At this point my thoughts are to probably perform a fenestrated in subtotal cholecystectomy to avoid possible bile duct injury. So I opened up the midportion of the gallbladder anteriorly and suctioned out more of this non- green colored clear fluid. The wall of the gallbladder appears mushy and falls apart easily which got me concerned whether it would hold any suture. Down at the lower portion of the gallbladder and infundibulum I opened up the overlying peritoneum and mostly got into the subserosal plane or I could peel off the posterior portion of the gallbladder with minimal bleeding from the liver bed. I was able to do this both laterally and medially. On this plane I was actually able to get behind the gallbladder where I think the course of the cystic duct is taken off from the neck of the gallbladder. I tried to visualize the internal opening of the cystic duct by a extending my previous anterior opening of the gallbladder even with this I could not opening itself and even with firefly there is no bilious drainage from inside of the gallbladder. I proceeded on the subserosal plane up to a point where I was getting some bleeding at the lateral lower edge of the gallbladder probably from the posterior cystic duct branch which eventually I was able to control with cautery. Over at the lower lateral edge I was able to peel off the hepatocystic lymph node and I dissected the cystic artery up high and clipped this and divided this. This allowed me to get into a medial plane to further develop what I think is the cystic duct posteriorly and connected this to my lateral dissection. At this point I called on of my coleagues to help me make sense of the anatomy. The fundus up to the midportion of the gallbladder has already been dissected off the liver bed. The lower portion of the gallbladder is mainly dissected free of the posterior cystic plate in a subserosal plane laterally and partially medially. The cystic artery has already been identified and clipped up high. I was able to get around circumferentially were I think the cystic duct meets the neck of the gallbladder. I could not proceed distally safely as I might injure the common bile duct. I have opened the lower portion anteriorly of the gallbladder to look for the internal opening of the cystic duct to no avail and I could not visualize any bilious drainage internally with firefly. No evidence of any bilious drainage externally. After confirming this finding, I decided to divide the area of the neck of the gallbladder to the point that I could be able to close this portion. This was detached from the main gallbladder and even with this I did not find any opening of the cystic duct. I closed this with a running mattress suture using a 20V LOC. I then have the left over the gallbladder which is only attached at the lower posterior cystic plate. To avoid any further bleeding I divided the posterior wall of the gallbladder and left it in situ. The mucosa was cauterized. The gallbladder was then essentially detached from the liver bed The gallbladder was placed in an Endo catch bag through the left midclavicular port. All the cottonoids and the Surgicel were removed. The liver bed was irrigated. With firefly I could not see any bilious drainage. The liver eliminates well on firefly. I scrubbed back in. The gallbladder was extracted by enlarging the port. I placed a 19 Hector drain at the liver bed for postop monitoring was coming off from the right axilla report. The left midclavicular port or the port of extraction was closed with 0 Vicryl using a Leon Rodas device area The abdomen was then deflated. All ports removed. All skin incisions closed with 4-0 Monocryl in subcuticular fashion. The drain was secured to skin with 3-0 silk. Dermabond was used for postoperative dressing. Patient remained hemodynamically stable throughout the procedure. He was successfully awakened, extubated and brought to the recovery room in stable con dition. All counts of sponges and instruments were verified correct. GUERRERO HERNANDEZ MD Mar 22, 2020 07:28
--- NOTE | 2020-03-22 09:03 | IPNPDOC ---
Text Note Date of Service The patient was seen on 03/22/20. NOTE Patient seen and examined this morning. He looks a lot more comfortable than he was preoperatively. He had this very inflamed over an acutely chronically thickened gallbladder. He underwent cholecystectomy yesterday. Overnight he has been hemodynamically stable. He has tolerated clear liquids. Vital signs MAXIMUM TEMPERATURE is 100.60 current is 98.3 at 6 AM pulse rate 65. Respiratory rate 20. Blood pressure 116/74. 93% on room air. Patient looks very comfortable. Anicteric sclerae. Very round, protuberant abdomen, mildly distended. No severe tenderness over the epigastric and right upper quadrant area. He has 3 port sites and the drain coming off from the right side. This is thin serosanguineous without bile tinge. Labs reviewed. WBC 14.2. LFTs shows improvement. Total bilirubin of 1.1 but direct fraction is only 0.4. AST 45, ALT 100 area Impression and plan: Severe acute cholecystitis, postop day 1 robotic-assisted laparoscopic cholecystectomy Continue with the antibiotics. I'll advance his diet. Continue with draining monitoring. If he does not spike any more fever, his leukocytosis normalizes and his LFTs remained improved or stable tomorrow or the next day he should be able to go home. Add like to keep the drain for continued monitoring when he goes home and he could follow up with me next week to see if he could remove the drain. VS,Fishbone, I+O VS, Fishbone, I+O Laboratory Tests 03/22/20 06:29 Vital Signs Date Time Temp Pulse Resp B/P (MAP) Pulse Ox O2 Delivery O2 Flow Rate FiO2 03/22/20 06:00 98.3 65 20 116/74 (88) 93 Room Air 03/21/20 20:00 3 I&O- Last 24 Hours up to 6 AM 03/22/20 06:00 Intake Total 4425 ml Output Total 2670 ml Balance 1755 ml NENITA PERAZA MD Mar 22, 2020 09:03
[2020-03-22] MEDS: OMEPRAZOLE 20 MG CAP PO SCH (09:55)
[2020-03-22] MEDS: LITHIUM CARBONATE 300 MG CAP PO SCH ×2 (09:55→21:25)
[2020-03-22] MEDS: predniSONE 5 MG TAB PO SCH ×2 (09:55→21:25)
[2020-03-22] MEDS: SIMVASTATIN 40 MG TAB PO SCH (09:55)
--- NOTE | 2020-03-22 11:31 | IPNPDOC ---
Text Note Date of Service The patient was seen on 03/22/20. NOTE SUBJECTIVE: She underwent uncomplicated robotic cholecystectomy with Dr. Tejeda yesterday, 03/21/20. This morning, patient reports that his pain is adequately controlled. He states that he feels better than yesterday. Denies any acute complaints including chest pain, shortness of breath or difficulty breathing. He says that his abdomen is slightly sore at the site of his drain. Overnight, patient was reported of having a Tmax of 100.6. No elevated temperatures since. Patient's diet has been advanced. He did eat breakfast difficulty. OBJECTIVE: Vitals: Please see below Gen.: She doesn't reexamine his hospital room. Patient found to be resting comfortably in bed in no acute distress. He reports that his pain is under control. HEENT: Normocephalic, atraumatic, EOMI, sclera nonicteric without conjunctival injection or pallor. Ptosis noted. His membranes are moist. CVS: Regular rate and rhythm, without murmur. Respiratory: Clear to auscultation bilaterally both anterior and posterior lung campbell. Abdomen: Soft, nontender nondistended, ALICIA drain in place in right upper quadrant of the patient's abdomen. Dressing is clean. Serosanguineous fluid is present. Port sites are also clean without drainage. No surrounding erythema. Extremities: No edema, no calf tenderness bilaterally. Posterior tibial and radial pulses are 2+ bilaterally. Neuro: CN III-XII grossly intact, strength intact, no dysphasia or dysarthria ASSESSMENT: Patient is a 68-year-old male, history of prostate cancer back pain and was found to have acute cholecystitis. Patient received appropriate pain control and general surgery was contacted. Patient underwent uncomplicated robotic cholecystectomy with Dr. Tejeda on 03/21/20. But this morning show a resolving transaminitis. Drain in place with serosanguineous output. Surgery has advance patient's diet. He is continued on antibiotics for now. We will anticipate discharge tomorrow or the next day depending lab values and clinical improvement. PLAN: #Acute cholecystitis, -CT findings consistent with Cholecystitis. S/P uncomplicated robotic cholecystectomy with Dr. Tejeda on 03/21/20. ALICIA drain in place with serosanguineous fluid. Port sites clean and dry. -Significantly improved RUQ tenderness. -WBC of 14.2, suspect reactive. Tmax of 100.6 overnight. -Continue antibiotics -Advance diet per surgery #Transaminitis -Improving this morning -AST/ALT of 127/170 perioperative yesterday, 45/100 this am. -Continue to monitor LFTs, bilirubin #Hypokalemia -Pt placed on tele for monitoring. No events overnight. -Normalized, will continue to monitor -Mg WNL #Bipolar -Continue lithium -Monitor renal function #Hyperlipidemia -Continue simvastatin #GERD -Continue omeprazole DVT: SCD, TEDs in anticipation of surgery CODE STATUS: Full Code DISPOSITION: Pending post-op improvement, stabilizing LFT. Patient will be discharged home with his ALICIA drain per surgery. Removal at outpatient follow-up. VS,Fishbone, I+O VS, Fishbone, I+O Laboratory Tests 03/22/20 06:29 Vital Signs Date Time Temp Pulse Resp B/P (MAP) Pulse Ox O2 Delivery O2 Flow Rate FiO2 03/22/20 06:00 98.3 65 20 116/74 (88) 93 Room Air 03/21/20 20:00 3 I&O- Last 24 Hours up to 6 AM 03/22/20 06:00 Intake Total 4425 ml Output Total 2670 ml Balance 1755 ml GME ATTESTATION GME ATTESTATION My faculty preceptor for this patient encounter was physically present during the encounter and was fully available. All aspects of the patient interview, examination, medical decision making process, and medical care plan development were reviewed and approved by the faculty preceptor. The faculty preceptor is aware and concurs with the plan as stated in the body of this note and will attest to such by his/her cosignature. ATTENDING NOTE Attending attestation: Patient seen and examined independently. Agree with resident's note. BULL THOMSON DO Mar 22, 2020 11:31 MARIA T GOODEN MD Mar 23, 2020 06:47
[2020-03-22 14:00] VITALS: BP 111/67
[2020-03-22 22:00] VITALS: BP 135/79
[2020-03-23] MEDS: PIPERACILLIN/TAZOBACTAM SOD 3.375 GM in D5W MINI-BAG PLUS 50 ML IV SCH ×2 (05:22→09:28)
[2020-03-23 06:00] VITALS: BP_SYST 128; BP_SYST 143; BP_DIAS 65; BP_DIAS 84
[2020-03-23 06:10] LABS: HEMATOCRIT 33.5 % (42.0-52.0); MEAN CORPUSCULAR HGB CONC 32.8 g/dl (32.0-36.5); MEAN CORPUSCULAR VOLUME 94.4 fl (80.0-96.0); PLATELET COUNT, AUTOMATED 151 10^3/uL (150-450); RED BLOOD COUNT 3.55 10^6/uL (4.30-6.10); WHITE BLOOD COUNT 13.3 10^3/uL (4.0-10.0)
[2020-03-23 06:49] LABS: ALBUMIN 2.8 GM/DL (3.2-5.2); ALT/SGPT 77 U/L (12-78); BILIRUBIN,TOTAL 0.5 MG/DL (0.2-1.0); BLOOD UREA NITROGEN 17 MG/DL (7-18); CALCIUM LEVEL 8.2 MG/DL (8.8-10.2); CARBON DIOXIDE LEVEL 25 MEQ/L (21-32); CHLORIDE LEVEL 113 MEQ/L (98-107); CREATININE FOR GFR 0.75 MG/DL (0.70-1.30); GLOMERULAR FILTRATION RATE > 60.0 (>42); GLUCOSE, FASTING 108 MG/DL (70-100); POTASSIUM SERUM 3.9 MEQ/L (3.5-5.1); SODIUM LEVEL 141 MEQ/L (136-145); TOTAL PROTEIN 6.3 GM/DL (6.4-8.2)
--- NOTE | 2020-03-23 07:25 | IPNPDOC ---
Text Note Date of Service The patient was seen on 03/23/20. NOTE Patient seen sitting up on chair, did well postoperatively. He is tolerating clear liquids Plan: advance to regular diet Continue abx. when stable go home with drain for continued postop monitoring VS,Fishbone, I+O VS, Fishbone, I+O Laboratory Tests 03/23/20 05:36 Vital Signs Date Time Temp Pulse Resp B/P (MAP) Pulse Ox O2 Delivery O2 Flow Rate FiO2 03/23/20 06:00 97.8 55 18 143/84 (103) 92 Room Air 03/21/20 20:00 3 I&O- Last 24 Hours up to 6 AM 03/23/20 06:00 Intake Total 1190 ml Output Total 1040 ml Balance 150 ml NENITA PERAZA MD Mar 23, 2020 07:25
[2020-03-23] MEDS: OMEPRAZOLE 20 MG CAP PO SCH (09:28)
[2020-03-23] MEDS: SIMVASTATIN 40 MG TAB PO SCH (09:29)
[2020-03-23] MEDS: LITHIUM CARBONATE 300 MG CAP PO SCH (09:29)
[2020-03-23] MEDS: predniSONE 5 MG TAB PO SCH (09:29)
[2020-03-23] MEDS ORDERED: AUGM875T28 PO ×2 (09:38→09:57)
--- NOTE | 2020-03-23 09:56 | DS.PDOC ---
Discharge Summary General Date of Admission Mar 20, 2020 at 16:05 Date of Discharge Mar 23, 2020 Attending Physician: MARIA T GOODEN MD Discharge Summary PROCEDURES PERFORMED DURING STAY: Robotic cholecystectomy ADMITTING DIAGNOSES: Acute cholecystitis Hypokalemia Bipolar Hyperlipidemia GERD DISCHARGE DIAGNOSES: Status post cholecystectomy Hypokalemia, resolved Liver hemangioma 2 noncalcified pulmonary nodules Bipolar Hyperlipidemia GERD COMPLICATIONS/CHIEF COMPLAINT: Acute Cholecystitis,Hypokalemia. HISTORY OF PRESENT ILLNESS: Mr. Espinoza is a 70-year-old male with prostate cancer is here for back pain and found to have acute cholecystitis. He doesn't remember when his abdominal pain initially started. He says that fatty foods sometimes mixes pains worse. 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 He did some heavy lifting and hurt his back. In addition, abdominal pain worsened. The pain was right-sided and rated as 8 out of 10 pain. The pain radiated towards the center and towards his back. He became more nauseous and was unable to tolerate food yesterday or today. There is no improvement in his symptoms, and he decided to come to the ED. While in the ED, total bilirubin was elevated and CT of abdomen and pelvis demonstrated acute cholecystitis without CBD dilatation. Then, general surgery was consulted. Plan for surgery tomorrow. NPO except for meds. HOSPITAL COURSE: Patient underwent robotic cholecystectomy the afternoon of 03/21/20. Morning labs did demonstrate a mild transaminitis. Perioperative course was unre markable. Patient's pain was well-controlled. Continued on IV Zosyn. The morning of 03/22/20, he was advanced to a regular diet. Patient tolerated this well throughout the day. Morning of discharge, patient's labs demonstrated improvement in his white count. His H&H remained stable. Potassium within normal limits. AST/ALT returned to baseline. Patient has not had any elevated temperatures overnight. He was seen by surgery who was agreeable to discharge and outpatient follow-up. Patient be discharged home on by mouth antibiotics, with his ALICIA drain in place and follow-up scheduled with surgery approximately one week. Of note, patient's CT scan did demonstrate a 1.7 hypervascular liver lesion consistent with a hemangioma. 2 noncalcified pulmonary nodules, 1 in the lingula at the left lung base and one in the right middle lobe were noted incidentally on abdomen CT. Patient is to follow-up with his primary care provider for further evaluation and management. Suggest ultrasound or MRI in regards to the hemangioma and chest CT for characterization of the pulmonary nodules. DISCHARGE MEDICATIONS: Please see below. ALLERGIES: Please see below. PHYSICAL EXAMINATION ON DISCHARGE: VITAL SIGNS: Please see below. GENERAL: Patient was interviewed and examined in his hospital room. Patient was found to be at his bedside chair, awake and alert in no acute distress. He was quite conversant, and grateful for the care he has received here in the hospital. HEENT: Normocephalic, atraumatic, EOMI, ptosis on the right, unchanged. His membranes are moist. Trachea midline, no JVD. CARDIOVASCULAR EXAMINATION: Regular rate and rhythm, normal S1 and S2 without any murmurs. RESPIRATORY EXAMINATION: Clear to auscultation bilaterally both anterior and posterior lung campbell. Good chest expansion. ABDOMINAL EXAMINATION: ALICIA drain in place in right upper abdomen. Appropriately bandaged. Dressings are clean and free of fluid or discharge. Port incisions also remained clean and dry. Abdomen slightly tender in right upper quadrant otherwise nontender nondistended no apparent guarding or rigidity. Bowel sounds are present. EXTREMITIES: No peripheral swelling/edema. No calf tenderness bilaterally. SKIN: No skin rashes or skin changes. NEUROLOGICAL EXAMINATION: Awake, alert and oriented 3. No dysarthria or dysphas ia. Moving all extremities equally. Cranial nerves 3 through 12 are grossly intact. No gait abnormalities issues. PSYCHIATRIC EXAMINATION: Mood and affect are appropriate given patient's current medical condition. LABORATORY DATA: Please see below. IMAGING: CXR (03/20/20): Mild cardiomegaly. No acute disease. Abd/Pelv (03/20/20): Findings consistent with acute cholecystitis. The gallbladder is distended and shows diffuse wall thickening in contrast enhancement in its wall. There is. Cholecystic fat streaking and pericholecystic fluid. There is a tiny sliver of fluid in the pelvic reflections. Diffuse fatty infiltration of the liver. 1.7 cm hypervascular liver lesion consistent with hemangioma. This could be further characterized by ultrasound or MRI screening. There are 2 noncalcified pulmonary nodules visible. One is in the lingula at the left lung base and the other in the right middle lobe. The lingular nodule is 10 mm in greatest diameter. Consider chest CT further evaluation and baseline imaging. Bilateral gynecomastia. PROGNOSIS: Good ACTIVITY: As tolerated DIET: Full DISPOSITION: Home with self-care Outpatient follow-up with Surgery in 1 week. ITEMS TO FOLLOWUP ON ON OUTPATIENT: You were diagnosed with Cholecystitis and underwent robotic cholecystectomy. Please take antibiotic as prescribed. Please take your home medications as prescribed. Please follow-up with your PCP for further outpatient evaluation of lung nodules and liver hemangioma identified on CT scan. Please follow-up with surgery in 1 week for removal of your drain. Please contact surgery sooner should you note "green-colored" fluid collection in your drain. Please return to the ED should you begin to experience a fever, chills or severe abdominal pain. Thank you for allowing us to participate in your care. DISCHARGE CONDITION: Stable TIME SPENT ON DISCHARGE: Greater than 35 minutes. Vital Signs/I&Os Vital Signs Date Time Temp Pulse Resp B/P (MAP) Pulse Ox O2 Delivery O2 Flow Rate FiO2 03/23/20 06:00 97.8 55 18 143/84 (103) 92 Room Air 03/21/20 20:00 3 I&O- Last 24 Hours up to 6 AM 03/23/20 06:00 Intake Total 1190 ml Output Total 1040 ml Balance 150 ml Laboratory Data Labs 24H Laboratory Tests 2 03/23/20 05:36: Nucleated Red Blood Cells % (auto) 0.0, Anion Gap 3L, Glomerular Filtration Rate > 60.0, Calcium Level 8.2L, Total Bilirubin 0.5#, Aspartate Amino Transf (AST/SGOT) 24, Alanine Aminotransferase (ALT/SGPT) 77, Alkaline Phosphatase 65, Total Protein 6.3L, Albumin 2.8L, Albumin/Globulin Ratio 0.8 CBC/BMP Laboratory Tests 03/23/20 05:36 Microbiology Microbiology 03/20/20 Blood Culture - Preliminary, Resulted No Growth after 48 hours. All Specime... 03/20/20 Blood Culture - Preliminary, Resulted No Growth after 48 hours. All Specime... Discharge Medications Scheduled Abiraterone Acetate (Zytiga) 500 Mg Tablet, 1,000 MG PO DAILY, (Reported) TAKE ON AN EMPTY STOMACH [place] Carbonate ([place] Carbonate) 300 Mg Capsule, 600 MG PO BID, (Reported) Multivit-Min/FA/Lycopen/Lutein (Centrum Silver Tablet) 1 Each Tablet, 1 TAB PO DAILY, (Reported) Omeprazole (Omeprazole) 20 Mg Capsule.dr, 20 MG PO DAILY, (Reported) Prednisone (Prednisone) 5 Mg Tablet, 5 MG PO BID, (Reported) Simvastatin (Simvastatin) 40 Mg Tablet, 40 MG PO DAILY, (Reported) USUALLY AROUND LUNCH Scheduled PRN Aspirin (Ecotrin) 81 Mg Tablet.dr, 162 MG PO DAILY PRN for PAIN, (Reported) Allergies Coded Allergies: No Known Allergies (Unverified , 03/20/20) GME ATTESTATION GME ATTESTATION My faculty preceptor for this patient encounter was physically present during the encounter and was fully available. All aspects of the patient interview, examination, medical decision making process, and medical care plan development were reviewed and approved by the faculty preceptor. The faculty preceptor is aware and concurs with the plan as stated in the body of this note and will attest to such by his/her cosignature. BULL THOMSON DO Mar 23, 2020 09:56
== END 2020-03-23 12:00 | disposition home or self-care (01) | DRG 419 ==
LOC: M ED 13:09 → M ED INP 16:05 → ENRESERV 16:55 → M MSPAV 17:49
PROVIDERS: ADMIT Internal Medicine; ATTEND Internal Medicine
PROC: 0FT44ZZ Resection of Gallbladder, Percutaneous Endoscopic Approach (ICD-10-PCS; principal; 2020-03-22)
PROC: 8E0W4CZ Robotic Assisted Procedure of Trunk Region, Percutaneous Endoscopic Approach (ICD-10-PCS; 2020-03-22)
DX: K81.0 Acute cholecystitis (principal); E87.6 Hypokalemia; K21.9 Gastro-esophageal reflux disease without esophagitis; F31.9 Bipolar disorder, unspecified; E78.5 Hyperlipidemia, unspecified; R91.8 Other nonspecific abnormal finding of lung field; D18.09 Hemangioma of other sites; Z79.82 Long term (current) use of aspirin; Z79.899 Other long term (current) drug therapy; Z85.46 Personal history of malignant neoplasm of prostate

== ENCOUNTER 2020-03-30 09:36 | Inpatient (IN) | payer MEDICARE ==
[~2020-03-30] VITALS: Ht 175.3 cm; Wt 95.5 kg
[~2020-03-30 09:36] MED LIST changes: +AUGM875T28 PO; +CENT1TAB PO; +ECOT81TA5 PO; +LITH300C PO; +OMEP-218 PO; +PRED5TA PO; -PROHANCE 279.3MG/ML 15ML VIAL (A9576) As Ordered ONE; -PROHANCE 279.3MG/ML 5ML VIAL (A9576) As Ordered ONE; +SIMV40TA20 PO; +[UNRECOGNIZED DRUG - CODE] PO
[2020-03-30] MEDS ORDERED: ISOVUE-370 76% 100ML VIAL As Ordered ONE (10:25)
[2020-03-30 10:32] LABS: BASO # 0.1 10^3/uL (0.0-0.2); BASO % 0.5 % (0.0-1.0); EOS # 0.1 10^3/uL (0.0-0.5); EOS % 0.8 % (0.0-3.0); HEMATOCRIT 40.7 % (42.0-52.0); LYMPH % 13.3 % (24.0-44.0); MEAN CORPUSCULAR HEMOGLOBIN 29.5 pg (27.0-33.0); MEAN CORPUSCULAR HGB CONC 31.9 g/dl (32.0-36.5); MEAN CORPUSCULAR VOLUME 92.3 fl (80.0-96.0); MONO # 1.2 10^3/uL (0.0-0.8); MONO % 7.8 % (0.0-5.0); NEUTROPHILS # 11.1 10^3/uL (1.5-8.5); NEUTROPHILS % 75.3 % (36.0-66.0); PLATELET COUNT, AUTOMATED 288 10^3/uL (150-450); RED BLOOD COUNT 4.41 10^6/uL (4.30-6.10); WHITE BLOOD COUNT 14.7 10^3/uL (4.0-10.0)
[2020-03-30 10:57] LABS: ALBUMIN 3.6 GM/DL (3.2-5.2); ALT/SGPT 34 U/L (12-78); BILIRUBIN,DIRECT 0.2 MG/DL (0.0-0.2); BILIRUBIN,TOTAL 0.5 MG/DL (0.2-1.0); BLOOD UREA NITROGEN 23 MG/DL (7-18); CALCIUM LEVEL 9.6 MG/DL (8.8-10.2); CARBON DIOXIDE LEVEL 28 MEQ/L (21-32); CHLORIDE LEVEL 104 MEQ/L (98-107); CREATININE FOR GFR 0.72 MG/DL (0.70-1.30); GLOMERULAR FILTRATION RATE > 60.0 (>42); GLUCOSE, FASTING 97 MG/DL (70-100); LIPASE 195 U/L (73-393); POTASSIUM SERUM 4.3 MEQ/L (3.5-5.1); SODIUM LEVEL 139 MEQ/L (136-145); TOTAL PROTEIN 6.6 GM/DL (6.4-8.2)
--- NOTE | 2020-03-30 12:24 | REP ---
INDICATION: n/v, reported "green" drainage in ALICIA tube, 6 days post op. COMPARISON: Abdomen and pelvis CT dated 03/20/2020. TECHNIQUE: Abdomen and pelvis CT IV contrast, without bowel FINDINGS: There are lung nodules in the visualized lower lung campbell similar to the comparison study. There is a surgical drainage catheter in the gallbladder fossa as an interval change the patient having had an interval cholecystectomy. There is no focal fluid collection in the gallbladder fossa to suggest abscess or hematoma. There is mild fat stranding in the gallbladder fossa. There is no pneumoperitoneum or ascites. The pancreas is unremarkable. The spleen measures 16 cm AP diameter and is enlarged. There are calcified splenic granulomas. This is unchanged. The adrenals and kidneys are unchanged. Tiny cyst in lower pole right kidney is unchanged. Abdominal aorta is unremarkable. There is no periaortic adenopathy or mass. There is no bowel distention or obstruction. Pelvis: The appendix is again unremarkable. The small volume of pelvic ascites identified previously is no longer present. There are occasional diverticula in the sigmoid colon as previously. There is no CT evidence of diverticulitis. IMPRESSION: There is a surgical drain in the gallbladder fossa. There are no focal fluid collections in the gallbladder fossa to suggest abscess or hematoma. There is mild mesenteric fat stranding in the gallbladder fossa, likely postsurgical change. There is no pneumoperitoneum or ascites. The previous small volume of ascites in the pelvis has resolved. There is sigmoid colon diverticulosis without diverticulitis. This is unchanged. No pneumoperitoneum. Splenic granulomas, unchanged. There is no bowel distention or obstruction. There are lung nodules in the visualized lower lung campbell similar to the prior study. Please refer to the recommendations concerning these nodules on the prior study. <Electronically signed by Marcio Morgan > 03/30/20 [id number]
[2020-03-30] MEDS ORDERED: AMOX875T2 PO (14:06)
[2020-03-30] MEDS ORDERED: ONDANSETRON 4MG/2ML VIAL IV PRN (14:15)
[2020-03-30 17:01] VITALS: BP 156/82
--- NOTE | 2020-03-30 19:04 | REP ---
INDICATION: r/o bile leak. COMPARISON: CT 03/30/2020. TECHNIQUE/RADIOTRACER AND DOSE: Following the intravenous administration of 5.8 mCi technetium 99 M mebrofenin, multiple images of the abdomen are performed for 1 hour. FINDINGS: The patient has had a recent cholecystectomy. A surgical drain is in place with the tip in the region of the gallbladder fossa. Biliary excretion of radiotracer is noted, and there is biliary to bowel transit at 15 minutes post injection. Activity extends distally through the small bowel throughout the exam. At 45-50 minutes post injection of small focus of radiotracer activity is seen in the gallbladder fossa. At that same time a linear focus of activity is seen in the right lower quadrant. On the right lateral view 60 minutes post injection curvilinear activity is seen in the surgical drain. There is also activity in the drainage bag at the end of the drainage tube. IMPRESSION: Findings consistent with a bile leak in the gallbladder fossa with radiotracer activity seen in the gallbladder fossa, surgical drain and drainage bag. <Electronically signed by Marcio Paredes > 03/30/20 1900
[2020-03-30] MEDS: SIMVASTATIN 40 MG TAB PO SCH (20:04)
[2020-03-30] MEDS: LR 1,000 ML IV SCH (20:05)
[2020-03-30] MEDS: LITHIUM CARBONATE 300 MG CAP PO SCH (21:09)
[2020-03-30] MEDS: predniSONE 5 MG TAB PO SCH (21:09)
[2020-03-30 22:00] VITALS: BP 151/84
[2020-03-31] MEDS: PERCOCET 5MG/325MG TAB PO PRN ×5 (00:06→23:29)
[2020-03-31 06:00] VITALS: BP 141/69
[2020-03-31] MEDS: LR 1,000 ML IV SCH ×2 (06:17→12:21)
[2020-03-31] MEDS: ENOXAPARIN 40MG/0.4ML SYRINGE (J1650 PER 10MG) SC SCH (07:44)
[2020-03-31 07:50] LABS: BASO % 0.3 % (0.0-1.0); EOS # 0.1 10^3/uL (0.0-0.5); EOS % 0.8 % (0.0-3.0); HEMATOCRIT 34.7 % (42.0-52.0); HEMOGLOBIN 11.4 g/dl (13.5-17.5); LYMPH # 1.5 10^3/uL (1.5-5.0); LYMPH % 13.9 % (24.0-44.0); MEAN CORPUSCULAR HEMOGLOBIN 30.6 pg (27.0-33.0); MEAN CORPUSCULAR HGB CONC 32.9 g/dl (32.0-36.5); MONO # 0.7 10^3/uL (0.0-0.8); MONO % 6.7 % (0.0-5.0); NEUTROPHILS # 8.1 10^3/uL (1.5-8.5); NEUTROPHILS % 77.3 % (36.0-66.0); PLATELET COUNT, AUTOMATED 253 10^3/uL (150-450); RED BLOOD COUNT 3.73 10^6/uL (4.30-6.10); WHITE BLOOD COUNT 10.5 10^3/uL (4.0-10.0)
[2020-03-31 08:20] LABS: ALT/SGPT 26 U/L (12-78); BILIRUBIN,TOTAL 0.7 MG/DL (0.2-1.0); BLOOD UREA NITROGEN 18 MG/DL (7-18); CALCIUM LEVEL 8.3 MG/DL (8.8-10.2); CARBON DIOXIDE LEVEL 28 MEQ/L (21-32); CHLORIDE LEVEL 107 MEQ/L (98-107); GLOMERULAR FILTRATION RATE > 60.0 (>42); GLUCOSE, FASTING 92 MG/DL (70-100); SODIUM LEVEL 140 MEQ/L (136-145); TOTAL PROTEIN 5.9 GM/DL (6.4-8.2)
[2020-03-31] MEDS: predniSONE 5 MG TAB PO SCH ×2 (09:14→21:20)
[2020-03-31] MEDS: PANTOPRAZOLE 40MG VIAL (C9113 PER 1) IV SCH (09:14)
[2020-03-31] MEDS: LITHIUM CARBONATE 300 MG CAP PO SCH ×2 (09:14→21:20)
[2020-03-31] MEDS: SIMVASTATIN 40 MG TAB PO SCH (12:21)
[2020-03-31 14:00] VITALS: BP 165/57
--- NOTE | 2020-03-31 15:25 | HPEPDOC ---
General Surgery H&P Date of Admission Mar 30, 2020 Attending Physician: NENITA PERAZA MD History and Physical CHIEF COMPLAINT: vomiting HISTORY OF PRESENT ILLNESS: 70 M patient of mine who underwent Robotic assisted laparoscopic cholecystectomy last week in an urgent fashion for severe acute cholecystitis. Intraoperative findings include a severely distended, acutely thickened gb wall with distention of the cystic duct. There was no evident gallstones I saw. I had to transect at the level of the gb cystic duct junction, suture the cystic duct stump as it is too inflamed and enlarged for a clip, and leave part of the gb wall on the liver bed. A postoperative drain was left in place for monitoring. He did well postoperatively and was discharged home on augmentin last with the drain. Initial output of the drain is serosanguenous. He was doing well at home and is following up with my nurse practioner in my office. This morning, he reports he had 3 episodes of vomiting which he initially attributed to the jelly/jam he ate for breakfast. He was supposed to be seen in the clinic for drain removal. His drain output has been consistently pink in color until this morning when it turned light green in color. He was then advised to go to the emergency room for proper evaluation where I saw him and subsequently admitted him. He denies fevers or chills, any lingering abdominal pain. He felt better after vomiting. No chest pains, shortness of breath. His drain output has a light bile tinged color and thus I admitted him for further workup. ALLERGIES: Please see below. HOME MEDICATIONS: Please see below. PAST MEDICAL HISTORY: 1. meningioma 2. coronary artery disease 3. bipolar disorder 4. h/o prostate cancer s/p prostatectomy, radiation now on hormonal therapy PAST SURGICAL HISTORY: 1. craniotomy x 2 for meningioma 2. RA laparoscopic cholecystectomy. History of prostate cancer status post prostatectomy, radical prostatectomy 3. robotic assisted radical PERSONAL/SOCIAL HISTORY: Denies smoking, alcohol use, or recreational drug use. REVIEW OF SYSTEMS: GENERAL: Denies chills, fatigue, fever, weight gain and weight loss. HEENT:has vision problems, eye droop on the right eye secondary to prior craniotomy NECK: Denies any neck pain. CARDIOVASCULAR: Denies chest pain and palpitations. MUSCULOSKELETAL: reports back pain o. SKIN: Denies rash, jaundice NEUROLOGIC: h/o meningioma, surgery has affected right eye vision. PSYCHIATRIC: reports bipolar d/o on lithium. ENDOCRINE: Denies thyroid disease. HEMATOLOGY/ONCOLOGY: Denies any bleeding or clotting disorder. HEART: Denies any chest pains, palpitations, paroxysmal dyspnea, orthopnea. PULMONARY: Denies chronic cough, dyspnea and wheezing. GASTROINTESTINAL: see HPI. GENITOURINARY: Denies dysuria, frequency, hematuria and nocturia. ENDOCRINE: Denies polydipsia, polyphagia, polyuria, heat or cold intolerance. INFECTIOUS: sent home on augmentin following last week's admission for cholecystitis. NUTRITION: Reports good appetite. PHYSICAL EXAMINATION: VITAL SIGNS: Please see below. GENERAL APPEARANCE: At the atime I saw him, he was sitted comfortably on the stretcher, denies any ongoing discomfort. . Awake, alert, oriented, pleasant and cooperative HEENT: Anicteric sclerae, right eye droop (baseline). CHEST: No chest wall abnormalities. Normal respiratory motion/effort. NECK: Supple. No thyromegaly. No lymphadenopathies. LUNGS: Lung sounds are clear to auscultation bilaterally. No wheezing appreciated. HEART: No chest wall abnormalities. Heart rate and rhythm are regular with no murmurs. ABDOMEN: Obese abdomen, quite rounded and potuberant, drain has a very light green colored drainage in the tube and the bulb. port site incisions are healing accordingly without drainage. Nontender on palpation. No severe distention. SKIN: Warm, moist. EXTREMITIES: Extremities have no deformities. No edema identified. NEUROLOGICAL: awake, alert, oriented, right eye droop, right pupil enlarged. ANCILLARIES: . LABORATORY DATA: Please see below. MICROBIOLOGY: Please see below. IMAGING: CT abdomen and pelvis no fluid collection, no free air. IMPRESSION AND PLAN: Patient comes in with complaint of vomiting otherwise no signs of severe inflammatory response. He is about 5 days following laparoscopic cholecystectomy for severe acute cholecystitis. He still has an external drain monitoring the gallbladder fossa and there is a recent change of the character of drainage. When he was discharged home last this was serosanguineous and reports that this continued to be serosanguineous up until this morning when he turned slightly bile tinged. I suspect her some element of bile leakage. He does not have any fluid collection at the gallbladder fossa, no free air. I will arrange for a HIDA scan to rule out a bile leak and if he does have a bile leak he'll arrange for gastroenterology consult for possible ERCP to address this. suspect bile leak 1 week post cholecystectomy for severely inflamed cholecystitis await hida scan results, if positive, will need ERCP by gastroenterology Vital Signs Vital Signs Date Time Temp Pulse Resp B/P (MAP) Pulse Ox O2 Delivery O2 Flow Rate FiO2 03/31/20 13:05 16 03/31/20 06:00 97.6 52 141/69 (93) 93 Room Air I&Os I&O- Last 24 Hours up to 6 AM 03/31/20 06:00 Intake Total 1180 ml Output Total 1305 ml Balance -125 ml Laboratory Data Labs 24H Laboratory Tests 2 03/31/20 07:08: Immature Granulocyte % (Auto) 1.0, Neutrophils (%) (Auto) 77.3H, Lymphocytes (%) (Auto) 13.9L, Monocytes (%) (Auto) 6.7H, Eosinophils (%) (Auto) 0.8, Basophils (%) (Auto) 0.3, Neutrophils # (Auto) 8.1, Lymphocytes # (Auto) 1.5, Monocytes # (Auto) 0.7, Eosinophils # (Auto) 0.1, Basophils # (Auto) 0.0, Nucleated Red Blood Cells % (auto) 0.0, Anion Gap 5L, Glomerular Filtration Rate > 60.0, Calci um Level 8.3L, Total Bilirubin 0.7, Aspartate Amino Transf (AST/SGOT) 10, Alanine Aminotransferase (ALT/SGPT) 26, Alkaline Phosphatase 56, Total Protein 5.9L, Albumin 3.0L, Albumin/Globulin Ratio 1.0 CBC/BMP Laboratory Tests 03/31/20 07:08 Home Medications Scheduled Abiraterone Acetate (Zytiga) 500 Mg Tablet, 1,000 MG PO DAILY, (Reported) TAKE ON AN EMPTY STOMACH Amoxicillin/Potassium Clav (Amox-Clav 875-125 mg Tablet) 1 Each Tablet, 1 TAB PO BID, (Reported) FILLED 03/23/20 FOR 7 DAYS [place] Carbonate ([place] Carbonate) 300 Mg Capsule, 600 MG PO BID, (Reported) Multivit-Min/FA/Lycopen/Lutein (Centrum Silver Tablet) 1 Each Tablet, 1 TAB PO DAILY, (Reported) Omeprazole (Omeprazole) 20 Mg Capsule.dr, 20 MG PO DAILY, (Reported) Prednisone (Prednisone) 5 Mg Tablet, 5 MG PO BID, (Reported) Simvastatin (Simvastatin) 40 Mg Tablet, 40 MG PO DAILY, (Reported) USUALLY AROUND LUNCH Allergies Coded Allergies: No Known Allergies (Unverified , 03/20/20) A-FIB/CHADSVASC A-FIB History Current/History of A-Fib/PAF?: No Current PO Anticoag Therapy: No NENITA PERAZA MD Mar 31, 2020 15:25
[2020-03-31] MEDS: AMPICILLIN SOD/SULBACTAM SOD 3 GM in D5W MINI-BAG PLUS 100 ML IV SCH ×2 (18:23→23:30)
[2020-03-31 22:00] VITALS: BP 146/77
[2020-04-01] MEDS: PERCOCET 5MG/325MG TAB PO PRN ×2 (04:20→23:37)
[2020-04-01] MEDS: LR 1,000 ML IV SCH ×3 (04:22→21:37)
[2020-04-01] MEDS: AMPICILLIN SOD/SULBACTAM SOD 3 GM in D5W MINI-BAG PLUS 100 ML IV SCH ×4 (05:03→23:36)
[2020-04-01 06:00] VITALS: BP 144/78
[2020-04-01 06:21] LABS: BASO % 0.1 % (0.0-1.0); EOS # 0.1 10^3/uL (0.0-0.5); EOS % 0.3 % (0.0-3.0); HEMATOCRIT 36.6 % (42.0-52.0); HEMOGLOBIN 12.4 g/dl (13.5-17.5); LYMPH # 1.3 10^3/uL (1.5-5.0); LYMPH % 6.1 % (24.0-44.0); MEAN CORPUSCULAR HGB CONC 33.9 g/dl (32.0-36.5); MEAN CORPUSCULAR VOLUME 91.5 fl (80.0-96.0); MONO # 1.2 10^3/uL (0.0-0.8); MONO % 5.8 % (0.0-5.0); NEUTROPHILS % 87.2 % (36.0-66.0); PLATELET COUNT, AUTOMATED 275 10^3/uL (150-450); WHITE BLOOD COUNT 20.7 10^3/uL (4.0-10.0)
[2020-04-01 06:52] LABS: ALBUMIN 3.3 GM/DL (3.2-5.2); ALT/SGPT 25 U/L (12-78); BILIRUBIN,TOTAL 1.2 MG/DL (0.2-1.0); BLOOD UREA NITROGEN 13 MG/DL (7-18); CALCIUM LEVEL 8.2 MG/DL (8.8-10.2); CARBON DIOXIDE LEVEL 24 MEQ/L (21-32); CHLORIDE LEVEL 108 MEQ/L (98-107); CREATININE FOR GFR 0.67 MG/DL (0.70-1.30); GLOMERULAR FILTRATION RATE > 60.0 (>42); GLUCOSE, FASTING 129 MG/DL (70-100); POTASSIUM SERUM 3.9 MEQ/L (3.5-5.1); SODIUM LEVEL 140 MEQ/L (136-145); TOTAL PROTEIN 6.6 GM/DL (6.4-8.2)
[2020-04-01] MEDS ORDERED: dexameTHASONE 4 MG/ML 1ML VIAL (J1100 PER 1MG) As Ordered ONE (08:29)
[2020-04-01] MEDS ORDERED: ROCURONIUM BROMIDE 50 MG/5 ML VIAL As Ordered ONE ×2 (08:29→12:50)
[2020-04-01] MEDS ORDERED: propofoL 200 MG/20 ML VIAL As Ordered ONE (08:29)
[2020-04-01] MEDS ORDERED: ACETAMINOPHEN 1000MG 100ML IV BTL (OFIRMEV) (J0131 PER 10MG) As Ordered ONE (08:29)
[2020-04-01] MEDS ORDERED: ONDANSETRON 4MG/2ML VIAL As Ordered ONE ×2 (08:29→14:38)
[2020-04-01] MEDS ORDERED: MIDAZOLAM INJ 2MG/2ML VIAL (J2250 PER 1MG) As Ordered ONE (08:29)
[2020-04-01] MEDS ORDERED: LIDOCAINE 2% 100MG/5ML SDV (FOR ANES.) As Ordered ONE ×2 (08:29→09:55)
[2020-04-01] MEDS ORDERED: fentaNYL 100 MCG/2 ML INJECTION (J3010) As Ordered ONE ×2 (08:29→12:35)
[2020-04-01] MEDS: ENOXAPARIN 40MG/0.4ML SYRINGE (J1650 PER 10MG) SC SCH (09:00)
[2020-04-01] MEDS ORDERED: SUGAMMADEX SODIUM 500 MG/5 ML VIAL (BRIDION) As Ordered ONE (09:56)
[2020-04-01 10:30] VITALS: BP 115/68
--- NOTE | 2020-04-01 11:09 | IPNPDOC ---
Text Note Date of Service The patient was seen on 03/31/20. NOTE Patient reports no discomfort, nausea or vomiting but notes that there has been some increased drainage which looks more bilious in appearance overnight. He has been afebrile. He had a HIDA scan done yesterday afternoon. Vital signs stable, nontender Leon, afebrile Comfortable No jaundice Abdomen is round, soft, nondistended. No tenderness on palpation. His drain is putting out bilious fluid now consistent with bile leakage Ancillaries HIDA scan done yesterday shows positive for bile leakage Impression and plan: He is postop day 7 from robotic-assisted laparoscopic cholecystectomy for acute cholecystitis Bile leakage I have spoke to Dr. Cook for possible ERCP to address the bile leak will start him on antibiotics NPO Protonix to decrease gastric secretions VS,Fishbone, I+O VS, Fishbone, I+O Laboratory Tests 04/01/20 05:54 Vital Signs Date Time Temp Pulse Resp B/P (MAP) Pulse Ox O2 Delivery O2 Flow Rate FiO2 04/01/20 10:30 98.4 61 18 115/68 (84) 95 Room Air I&O- Last 24 Hours up to 6 AM 04/01/20 05:59 Intake Total 1900 ml Output Total 3005 ml Balance -1105 ml NENITA PERAZA MD Apr 01, 2020 11:09
[2020-04-01] MEDS ORDERED: UNASYN 1.5 GM VIAL As Ordered ONE (11:10)
[2020-04-01] MEDS ORDERED: ISOVUE-300 61% 50ML VIAL As Ordered ONE (11:14)
--- NOTE | 2020-04-01 11:32 | CR.PDOC ---
General Date of Consultation: Apr 01, 2020 Referring Provider: NENITA HERNANDEZ MD Attending Physician: TED BRANTLEY MD Consultation Referring physician / PCP : Dr. Hernandez Reason for consult: Bile duct leak. HPI: 70 year old male patient with remote h/o meningioma s/p surgery with residual right eye ptosis, possible right 3 nerve palsy, ), prostate cancer s/p therapy and currently on nursing home prednisone, recently diagnosed with severe cholecystitis s/p robotic cholecystectomy on 03/21/2020, with abdominal drain left post operatively, now presented with right upper quadrant pain and increased drain output. Patient had HIDA scan showing possible bile leak and GI was consulted for the same. Patient reports moderate right upper quadrant pain, non- radiating, associated with nausea and poor appetite. He denies any fever, chills and blood in drain. Pertinent negative GI symptoms: Patient denies vomiting, diarrhea, early satiety or unintentional weight loss, hematemesis, melena or hematochezia. Review of Systems: GI: as stated above CVS: No chest pain, No palpitations, No leg swelling RS: No Shortness of breath, No Wheezing COMMUNITY RELATIONS REP: No loss of consciousness, No focal motor weakness., Hematology: No easy bruising, No gum bleeding, Musculoskeletal: No joint pain, ambulating well. : No blood inurine, No burning sensation of the urine ENT: No ear discharge/ pain, No dysphagia. Eyes: No photophobia. Skin: No rash Home medications: reviewed. No Plavix and No anticoagulants Medical h/o: As above. Surgical h/o: None on abdomen. Social h/o: Denies Alcohol, smoking, IVDA/ drugs. Family h/o of GI cancers - None Prior Endoscopies: reviewed. Prior GI evaluation: None in [facility] Exam: Vitals: reviewed General: Alert and oriented x 3, Mild distress from right upper quadrant pain. HEENT: No pallor, no icterus. Normal oropharynx, NO cervical lymphadenopathy. Chest: symmetric with bilateral air entry, CVS: S1, S2 heard, Abdomen: non-distended, Mild tenderness in the right upper quadrant, no rigidity or guarding, no palpable masses, normal bowel sounds heard. Rectal exam: Patient refused / Deferred at this time. Extremities: pulses palpable, no pedal edema, COMMUNITY RELATIONS REP: no focal motor or sensory deficits. Moves all extremities Skin: no rash. Labs: reviewed. Imaging: none / reviewed. Impression: -- persistent right upper quadrant pain with increase drainage output in patient with recent cholecystectomy, imaging suggestive of possible Bile leak. -- Needs further management. Recommendations: -- Patient educated about the prior test results and all questions answered. -- Continue broad spectrum antibiotics for now. -- NPO for now. -- Will proceed with ERCP with sphincterotomy and CBD stent placement. Patient educated about the procedure, indications, risks (including but not limited to acute pancreatitis, bleeding, infection, perforation, anesthesia risks, including ), benefits and all alternatives including conservative measures without intervention. Patient verbalized understanding and consented for the procedure. -- Please follow operative note for post procedure recommendations. -- Plan of care educated to patient and patient verbalized understanding and agreed. All questions answered. -- Recommendations communicated to primary team. Patient to follow with PCP upon discharge for routine medical care. Vital Signs/I&O Vital Signs Date Time Temp Pulse Resp B/P (MAP) Pulse Ox O2 Delivery O2 Flow Rate FiO2 04/01/20 10:30 98.4 61 18 115/68 (84) 95 Room Air I&O- Last 24 Hours up to 6 AM 04/01/20 06:00 Intake Total 2300 ml Output Total 2805 ml Balance -505 ml Laboratory Data Labs 24H Laboratory Tests 2 04/01/20 05:54: Immature Granulocyte % (Auto) 0.5, Neutrophils (%) (Auto) 87.2H, Lymphocytes (%) (Auto) 6.1L, Monocytes (%) (Auto) 5.8H, Eosinophils (%) (Auto) 0.3, Basophils ( %) (Auto) 0.1, Neutrophils # (Auto) 18.0H, Lymphocytes # (Auto) 1.3L, Monocytes # (Auto) 1.2H, Eosinophils # (Auto) 0.1, Basophils # (Auto) 0.0, Nucleated Red Blood Cells % (auto) 0.0, Anion Gap 8, Glomerular Filtration Rate > 60.0, Calcium Level 8.2L, Total Bilirubin 1.2#H, Aspartate Amino Transf (AST/SGOT) 11, Alanine Aminotransferase (ALT/SGPT) 25, Alkaline Phosphatase 62, Total Protein 6.6, Albumin 3.3, Albumin/Globulin Ratio 1.0 CBC/BMP Laboratory Tests 04/01/20 05:54 Allergies Coded Allergies: No Known Allergies (Unverified , 03/20/20) Home Medications Scheduled Abiraterone Acetate (Zytiga) 500 Mg Tablet, 1,000 MG PO DAILY, (Reported) TAKE ON AN EMPTY STOMACH Amoxicillin/Potassium Clav (Amox-Clav 875-125 mg Tablet) 1 Each Tablet, 1 TAB PO BID, (Reported) FILLED 03/23/20 FOR 7 DAYS Kelliher Carbonate (Kelliher Carbonate) 300 Mg Capsule, 600 MG PO BID, (Reported) Multivit-Min/FA/Lycopen/Lutein (Centrum Silver Tablet) 1 Each Tablet, 1 TAB PO DAILY, (Reported) Omeprazole (Omeprazole) 20 Mg Capsule.dr, 20 MG PO DAILY, (Reported) Prednisone (Prednisone) 5 Mg Tablet, 5 MG PO BID, (Reported) Simvastatin (Simvastatin) 40 Mg Tablet, 40 MG PO DAILY, (Reported) USUALLY AROUND LUNCH TED BRANTLEY MD Apr 01, 2020 11:32
[2020-04-01] MEDS ORDERED: GLUCAGON INJ 1MG VIAL As Ordered ONE (12:08)
[2020-04-01] MEDS ORDERED: METOCLOPRAMIDE INJ 10MG/2ML VIAL (J2765 PER 1) As Ordered ONE ×2 (13:53→14:54)
--- NOTE | 2020-04-01 14:18 | ROOR ---
Patient Name: Glenroy Espinoza Procedure Date: 04/01/2020 11:17 AM Date of : 1950 Age: 70 Room: [facility] Gender: Male Note Status: Finalized Procedure: ERCP Indications: Bile duct stone(s) Providers: Fran Cook MD Referring MD: JERAMIE WHITAKER MD Requesting Provider: Guerrero Hernandez MD Medicines: Monitored Anesthesia Care Complications: No immediate complications. Procedure: Pre-Anesthesia Assessment: - Prior to the procedure, a History and Physical was performed, and patient medications and allergies were reviewed. The patient is competent. The risks and benefits of the procedure and the sedation options and risks were discussed with the patient. All questions were answered and informed consent was obtained. Patient identification and proposed procedure were verified by the physician, the nurse and the anesthesiologist in the procedure room. Mental Status Examination: alert and oriented. Airway Examination: normal oropharyngeal airway and neck mobility. Respiratory Examination: clear to auscultation. CV Examination: normal. Prophylactic Antibiotics: The patient does not require prophylactic antibiotics. Prior Anticoagulants: The patient has taken no previous anticoagulant or antiplatelet agents. ASA Grade Assessment: II - A patient with mild systemic disease. After reviewing the risks and benefits, the patient was deemed in satisfactory condition to undergo the procedure. The anesthesia plan was to use monitored anesthesia care (MAC). Immediately prior to administration of medications, the patient was re-assessed for adequacy to receive sedatives. The heart rate, respiratory rate, oxygen saturations, blood pressure, adequacy of pulmonary ventilation, and response to care were monitored throughout the procedure. The physical status of the patient was re-assessed after the procedure. The Duodenoscope was introduced through the mouth, and advanced to the duodenum and used to inject contrast into the bile duct. The patient tolerated the procedure well. The ERCP was technically difficult and complex due to challenging cannulation because of abnormal anatomy and challenging cannulation because of peridiverticular papilla. Successful completion of the procedure was aided by changing the spincterotome and thinner glidewire. Findings: The offal roller film was normal. Noted right upper quadrant drain. The esophagus was successfully intubated under direct vision without detailed examination of the pharynx, larynx, and associated structures, and upper GI tract. The upper GI tract was grossly normal. The major papilla was flat. The major papilla was small. The major papilla was adjacent to a diverticulum. The minor papilla was normal. A 0.025 inch straight Glidewire was passed into the biliary tree. The short-nosed traction sphincterotome was passed over the guidewire and the bile duct was then deeply cannulated. Contrast was injected. I personally interpreted the bile duct images. Ductal flow of contrast was adequate. Image quality was adequate. Contrast extended to the cystic duct. Contrast extended to the entire biliary tree. Extravasation of contrast originating from the cystic duct was observed. The main bile duct contained no stones. A long cystic duct stump originated in the middle third of the main bile duct. Biliary sphincterotomy was made with a monofilament traction (standard) sphincterotome using ERBE electrocautery. There was no post-sphincterotomy bleeding. One 8.5 Fr by 7 cm plastic stent with a single external flap and a single internal flap was placed into the common bile duct. Bile flowed through the stent. The stent was in good position. Pancreatic duct was neither cannulated nor opacified. Impression: - The major papilla appeared to be flat. - The major papilla appeared to be small. - The major papilla was adjacent to a diverticulum. - The minor papilla appeared normal. - A bile leak was found. - The patient has had a cholecystectomy. - A biliary sphincterotomy was performed. - One plastic stent was placed into the common bile duct. Recommendation: - The patient will be observed post-procedure, until all discharge criteria are met. - [facility] care. - Avoid aspirin and nonsteroidal anti-inflammatory medicines. - Patient has a contact number available for emergencies. The signs and symptoms of potential delayed complications were discussed with the patient. Return to normal activities tomorrow. Written discharge instructions were provided to the patient. - Clear liquid diet today, then advance as tolerated to high fiber diet. - Give Ringers lactate bolus 500 cc and then continue IV drip based on fluid status. - Use broad spectrum antibiotics for 7 days. - Observe patient's clinical course. - Repeat ERCP in 6 weeks for stent removal and Biliary brush cytology. - Return to GI clinic in [facility] (address [address], [address], [place] [address]) in 4 -- 6 weeks. Please call GI clinic @ [phone] for apppointment date and time. - Return to primary care physician. Procedure Code(s): --- Professional --- 02809, Endoscopic retrograde cholangiopancreatography (ERCP); with placement of endoscopic stent into biliary or pancreatic duct, including pre- and post-dilation and guide wire passage, when performed, including sphincterotomy, when performed, each stent [id number], 26, Endoscopic catheterization of the biliary ductal system, radiological supervision and interpretation Diagnosis Code(s): --- Professional --- K83.9, Disease of biliary tract, unspecified Z90.49, Acquired absence of other specified parts of digestive tract K80.50, Calculus of bile duct without cholangitis or cholecystitis without obstruction K83.8, Other specified diseases of biliary tract CPT copyright 2019 [employer]. All rights reserved. The codes documented in this report are preliminary and upon visual merchandise manager review may be revised to meet current compliance requirements. Attending Participation: I personally performed the entire procedure. Fran Cook MD Fran Cook MD 04/01/2020 2:18:04 PM Electronically signed by Fran Cook MD Number of Addenda: 0 Note Initiated On: 04/01/2020 11:17 AM Estimated Blood Loss: Estimated blood loss: none.
[2020-04-01] MEDS ORDERED: PERCOCET 5MG/325MG TAB PO PRN ×2 (14:30→16:00)
[2020-04-01] MEDS ORDERED: LR 1,000 ML IV SCH ×2 (14:30→16:00)
[2020-04-01] MEDS ORDERED: ONDANSETRON 4MG/2ML VIAL IV PRN ×2 (14:30→16:00)
[2020-04-01] MEDS ORDERED: LR 500 ML IV ONE (14:30)
[2020-04-01] MEDS ORDERED: fentaNYL 100 MCG/2 ML INJECTION (J3010) IV PRN ×2 (14:30→16:00)
[2020-04-01] MEDS ORDERED: METOCLOPRAMIDE INJ 10MG/2ML VIAL (J2765 PER 1) IV PRN ×2 (14:30→16:00)
--- NOTE | 2020-04-01 14:39 | REP ---
INDICATION: BILE LEAK. COMPARISON: None. TECHNIQUE: Thirty views. 132.1 seconds of fluoroscopy time is reported. FINDINGS: A sequence of 31 last image hold fluoroscopically obtained spot radiographs of the right upper quadrant document endoscopic cannulation, contrast injection, and stent placement in the common bile duct. Early images do show contrast accumulating in the gallbladder cholecystectomy fossa via the cystic duct. Consistent with bile leak. IMPRESSION: Procedural imaging. <Electronically signed by Torito Marinelli > 04/01/20 0469
[2020-04-01 15:30] VITALS: BP 157/87
[2020-04-01] MEDS: predniSONE 5 MG TAB PO SCH ×2 (15:44→20:16)
[2020-04-01] MEDS: LITHIUM CARBONATE 300 MG CAP PO SCH ×2 (15:44→20:16)
[2020-04-01] MEDS: PANTOPRAZOLE 40MG VIAL (C9113 PER 1) IV SCH (15:44)
[2020-04-01] MEDS: SIMVASTATIN 40 MG TAB PO SCH (15:47)
[2020-04-01 22:00] VITALS: BP 127/79
[2020-04-02 02:00] VITALS: BP 137/78
[2020-04-02] MEDS: LR 1,000 ML IV SCH ×2 (02:06→08:50)
[2020-04-02 05:48] LABS: BASO % 0.2 % (0.0-1.0); EOS % 0.2 % (0.0-3.0); HEMATOCRIT 32.3 % (42.0-52.0); HEMOGLOBIN 10.6 g/dl (13.5-17.5); LYMPH # 1.1 10^3/uL (1.5-5.0); LYMPH % 8.1 % (24.0-44.0); MEAN CORPUSCULAR HEMOGLOBIN 30.5 pg (27.0-33.0); MEAN CORPUSCULAR HGB CONC 32.8 g/dl (32.0-36.5); MEAN CORPUSCULAR VOLUME 93.1 fl (80.0-96.0); MONO # 0.6 10^3/uL (0.0-0.8); MONO % 4.2 % (0.0-5.0); NEUTROPHILS # 11.5 10^3/uL (1.5-8.5); NEUTROPHILS % 86.8 % (36.0-66.0); PLATELET COUNT, AUTOMATED 237 10^3/uL (150-450); RED BLOOD COUNT 3.47 10^6/uL (4.30-6.10); WHITE BLOOD COUNT 13.3 10^3/uL (4.0-10.0)
[2020-04-02 06:00] VITALS: BP 152/73
[2020-04-02] MEDS: AMPICILLIN SOD/SULBACTAM SOD 3 GM in D5W MINI-BAG PLUS 100 ML IV SCH ×3 (06:05→18:07)
[2020-04-02 06:18] LABS: ALT/SGPT 22 U/L (12-78); BILIRUBIN,TOTAL 0.8 MG/DL (0.2-1.0); BLOOD UREA NITROGEN 9 MG/DL (7-18); CARBON DIOXIDE LEVEL 25 MEQ/L (21-32); CHLORIDE LEVEL 111 MEQ/L (98-107); CREATININE FOR GFR 0.64 MG/DL (0.70-1.30); GLOMERULAR FILTRATION RATE > 60.0 (>42); GLUCOSE, FASTING 114 MG/DL (70-100); POTASSIUM SERUM 3.8 MEQ/L (3.5-5.1); SODIUM LEVEL 144 MEQ/L (136-145); TOTAL PROTEIN 5.6 GM/DL (6.4-8.2)
[2020-04-02] MEDS: PANTOPRAZOLE 40MG VIAL (C9113 PER 1) IV SCH (08:46)
[2020-04-02] MEDS: predniSONE 5 MG TAB PO SCH ×2 (08:46→20:19)
[2020-04-02] MEDS: ENOXAPARIN 40MG/0.4ML SYRINGE (J1650 PER 10MG) SC SCH (08:47)
[2020-04-02] MEDS: LITHIUM CARBONATE 300 MG CAP PO SCH ×2 (08:47→20:19)
[2020-04-02] MEDS: SIMVASTATIN 40 MG TAB PO SCH (12:23)
[2020-04-02 14:00] VITALS: BP 144/77
[2020-04-02 22:00] VITALS: BP 148/78
[2020-04-03] MEDS: AMPICILLIN SOD/SULBACTAM SOD 3 GM in D5W MINI-BAG PLUS 100 ML IV SCH ×2 (00:07→05:04)
[2020-04-03] MEDS: PERCOCET 5MG/325MG TAB PO PRN ×2 (00:10→05:04)
[2020-04-03 06:00] VITALS: BP 144/80
[2020-04-03 06:21] LABS: BASO % 0.2 % (0.0-1.0); EOS # 0.1 10^3/uL (0.0-0.5); EOS % 0.9 % (0.0-3.0); HEMATOCRIT 33.7 % (42.0-52.0); HEMOGLOBIN 11.1 g/dl (13.5-17.5); LYMPH # 1.4 10^3/uL (1.5-5.0); LYMPH % 11.8 % (24.0-44.0); MEAN CORPUSCULAR HEMOGLOBIN 30.9 pg (27.0-33.0); MEAN CORPUSCULAR HGB CONC 32.9 g/dl (32.0-36.5); MEAN CORPUSCULAR VOLUME 93.9 fl (80.0-96.0); MONO # 0.6 10^3/uL (0.0-0.8); MONO % 4.5 % (0.0-5.0); NEUTROPHILS % 82.2 % (36.0-66.0); PLATELET COUNT, AUTOMATED 249 10^3/uL (150-450); RED BLOOD COUNT 3.59 10^6/uL (4.30-6.10); WHITE BLOOD COUNT 12.2 10^3/uL (4.0-10.0)
[2020-04-03 06:52] LABS: ALT/SGPT 21 U/L (12-78); BILIRUBIN,TOTAL 0.5 MG/DL (0.2-1.0); BLOOD UREA NITROGEN 9 MG/DL (7-18); CALCIUM LEVEL 8.2 MG/DL (8.8-10.2); CARBON DIOXIDE LEVEL 29 MEQ/L (21-32); CHLORIDE LEVEL 108 MEQ/L (98-107); CREATININE FOR GFR 0.69 MG/DL (0.70-1.30); GLOMERULAR FILTRATION RATE > 60.0 (>42); GLUCOSE, FASTING 111 MG/DL (70-100); POTASSIUM SERUM 3.5 MEQ/L (3.5-5.1); SODIUM LEVEL 141 MEQ/L (136-145); TOTAL PROTEIN 6.2 GM/DL (6.4-8.2)
[2020-04-03] MEDS: ENOXAPARIN 40MG/0.4ML SYRINGE (J1650 PER 10MG) SC SCH (08:29)
[2020-04-03] MEDS: LITHIUM CARBONATE 300 MG CAP PO SCH (08:35)
[2020-04-03] MEDS: predniSONE 5 MG TAB PO SCH (08:36)
[2020-04-03] MEDS: PANTOPRAZOLE 40MG VIAL (C9113 PER 1) IV SCH (08:36)
--- NOTE | 2020-04-03 11:43 | IPN ---
PROGRESS NOTE DATE: 04/02/2020 SUBJECTIVE: Patient is status post stenting for cystic duct leak and patient has made some significant improvements overnight. LFTs are coming down nicely, his bile drainage has significantly improved and overall he has been tolerating a clear liquid diet. He has been afebrile and feels well. His white count is coming down nicely from 20,000 to 13,000. PHYSICAL EXAMINATION: Abdomen: Softly distended, nontender, no guarding or rebound. He does have a ALICIA drain that is intact and draining some minimal bile, but otherwise no other significant abnormalities. IMPRESSION AND PLAN: Patient is status post stenting for cystic duct drainage and my recommendation at this time is to increase his diet, see how he does with increased diet overnight. If he does well we will plan on discharge tomorrow with follow up in approximately 10-14 days for drain removal.
--- NOTE | 2020-04-04 08:40 | DS.PDOC ---
Discharge Summary General Date of Admission Mar 30, 2020 at 14:06 Date of Discharge 04/03/2020 Attending Physician: NENITA PERAZA MD Specialist/Consultants Involve: TED COOK MD Discharge Summary PROCEDURES PERFORMED DURING STAY: ERCP with sphincterotomy and stenting. ADMITTING DIAGNOSES: 1.. Cholecystectomy suspect bile leakage. DISCHARGE DIAGNOSES: 1. Bile leak at the cystic duct stump status post ERCP. COMPLICATIONS/CHIEF COMPLAINT: Bile Leak. HISTORY OF PRESENT ILLNESS: 70 M patient of mine who underwent Robotic assisted laparoscopic cholecystectomy last week in an urgent fashion for severe acute cholecystitis. Intraoperative findings include a severely distended, acutely thickened gb wall with distention of the cystic duct. There was no evident gallstones I saw. I had to transect at the level of the gb cystic duct junction, suture the cystic duct stump as it is too inflamed and enlarged for a clip, and leave part of the gb wall on the liver bed. A postoperative drain was left in place for monitoring. He did well postoperatively and was discharged home on augmentin last with the drain. Initial output of the drain is serosanguenous. He was doing well at home and is following up with my nurse practioner in my office. This morning, he reports he had 3 episodes of vomiting which he initially attributed to the jelly/jam he ate for breakfast. He was supposed to be seen in the clinic for drain removal. His drain output has been consistently pink in color until this morning when it turned light green in color. He was then advised to go to the emergency room for proper evaluation where I saw him and subsequently admitted him. He denies fevers or chills, any lingering abdominal pain. He felt better after vomiting. No chest pains, shortness of breath. His drain output has a light bile tinged color and thus I admitted him for further workup. HOSPITAL COURSE: Patient was admitted under my service. He was set up for a HIDA scan in the afternoon of 03/30/2020. This shows evidence for bile leak. He was kept nothing by mouth and started on IV Unasyn 3 g IV every 6 hours for antibiotic coverage. Gastroenterology consult was obtained with visit with Dr. Cook for ERCP. He was brought to the operating room on 04/01/2020 and underwent ERCP, sphincterotomy and: Bile duct stent placement under general anesthesia. He did well from this and was started on clear liquids which she tolerated. The drain output markedly came down. After the stenting. His diet was advanced which she tolerated he has been afebrile postoperatively. His leukocytosis is gone down markedly from as high of 20,000 down to 12,000. His LFTs normalized. He was discharged home with a drain and was instructed to call the office to be seen for possible removal of the drain about 10-14 days. DISCHARGE MEDICATIONS: Please see below. ALLERGIES: Please see below. PHYSICAL EXAMINATION ON DISCHARGE: VITAL SIGNS: Please see below. Refer to the progress note of Dr. Ruiz on 04/03/2020 for the exam on discharge LABORATORY DATA: Please see below. IMAGING: He had a CT scan abdomen and pelvis in the ER. This was followed with a HIDA scan and he underwent ERCP with fluoroscopy PROGNOSIS: Good ACTIVITY: As tolerated. DIET: As tolerated DISCHARGE PLAN: Patient is discharged home with a drain for further postoperative monitoring and this instructed to follow up with us in 10-14 days DISPOSITION: 01 Home, Self-Care. DISCHARGE INSTRUCTIONS: 1. As above follow up in clinic. ITEMS TO FOLLOWUP ON ON OUTPATIENT: 1. Drain output. DISCHARGE CONDITION: Stable. TIME SPENT ON DISCHARGE: Greater than 30 minutes. Vital Signs/I&Os Vital Signs Date Time Temp Pulse Resp B/P (MAP) Pulse Ox O2 Delivery O2 Flow Rate FiO2 04/03/20 06:00 97.3 51 17 144/80 (101) 96 Room Air 04/02/20 00:12 2.0 I&O- Last 24 Hours up to 6 AM 04/04/20 06:00 Intake Total 450 ml Balance 450 ml Discharge Medications Scheduled Abiraterone Acetate (Zytiga) 500 Mg Tablet, 1,000 MG PO DAILY, (Reported) TAKE ON AN EMPTY STOMACH Amoxicillin/Potassium Clav (Amox-Clav 875-125 mg Tablet) 1 Each Tablet, 1 TAB PO BID, (Reported) FILLED 03/23/20 FOR 7 DAYS [place] Carbonate ([place]ton Carbonate) 300 Mg Capsule, 600 MG PO BID, (Reported) Multivit-Min/FA/Lycopen/Lutein (Centrum Silver Tablet) 1 Each Tablet, 1 TAB PO DAILY, (Reported) Omeprazole (Omeprazole) 20 Mg Capsule.dr, 20 MG PO DAILY, (Reported) Prednisone (Prednisone) 5 Mg Tablet, 5 MG PO BID, (Reported) Simvastatin (Simvastatin) 40 Mg Tablet, 40 MG PO DAILY, (Reported) USUALLY AROUND LUNCH Allergies Coded Allergies: No Known Allergies (Unverified , 03/20/20) NENITA PERAZA MD Apr 04, 2020 08:40
== END 2020-04-03 10:14 | disposition home or self-care (01) | DRG 393 ==
LOC: M ED 09:36 → M ED INP 14:06 → M MSPAV 17:07
PROVIDERS: ADMIT Surgery; ATTEND Surgery
PROC: 0F798DZ Dilation of Common Bile Duct with Intraluminal Device, Via Natural or Artificial Opening Endoscopic (ICD-10-PCS; principal; 2020-04-01 10:30)
DX: K91.89 Other postprocedural complications and disorders of digestive system (principal); K83.2 Perforation of bile duct; Z79.899 Other long term (current) drug therapy; I25.10 Atherosclerotic heart disease of native coronary artery without angina pectoris; F31.9 Bipolar disorder, unspecified; Z85.46 Personal history of malignant neoplasm of prostate; Z90.49 Acquired absence of other specified parts of digestive tract; K83.8 Other specified diseases of biliary tract; K80.50 Calculus of bile duct without cholangitis or cholecystitis without obstruction

== ENCOUNTER → 2020-06-19 | Outpatient (CLI) | payer MEDICARE ==
[~2020-06-19] MED LIST changes: +AMOX875T2 PO
== END ==
LOC: M LABSMTC 08:41
PROVIDERS: ATTEND Anesthesiology
DX: Z01.812 Encounter for preprocedural laboratory examination (principal); Z20.822 Contact with and (suspected) exposure to COVID-19

== ENCOUNTER 2020-06-24 06:13 | Day surgery (SDC) | payer MEDICARE ==
[~2020-06-24] VITALS: Ht 175.3 cm; Wt 96.6 kg
[~2020-06-24 06:13] MED LIST changes: +NS 1,000 ML IV ONE
[2020-06-24] MEDS ORDERED: ISOVUE-300 61% 50ML VIAL As Ordered ONE (07:15)
[2020-06-24] MEDS ORDERED: LIDOCAINE 2% 100MG/5ML SDV (FOR ANES.) As Ordered ONE (07:21)
[2020-06-24] MEDS ORDERED: propofoL 200 MG/20 ML VIAL As Ordered ONE (07:21)
[2020-06-24] MEDS ORDERED: ROCURONIUM BROMIDE 50 MG/5 ML VIAL As Ordered ONE (07:21)
[2020-06-24] MEDS ORDERED: fentaNYL 100 MCG/2 ML INJECTION (J3010) As Ordered ONE (07:21)
[2020-06-24] MEDS ORDERED: MIDAZOLAM INJ 2MG/2ML VIAL (J2250 PER 1MG) As Ordered ONE (07:22)
[2020-06-24] MEDS ORDERED: GLYCOPYRROLATE INJ 0.2 MG/ML 2 ML VIAL As Ordered ONE (07:47)
--- NOTE | 2020-06-24 07:49 | ECGEPIP ---
[facility] Test Date: 2020-06-24 Pat Name: CHRISTIAN BANUELOS Department: Room: - Gender: Male Name Plate Stamper: [facility] : 1950 Requested By: GINO DELGADILLO Order Number: [id number] Reading MD: Nicole Strickland Measurements Intervals [place]atte Rate: 50 P: 90 LA: 292 QRS: 44 QRSD: 136 T: 224 QT: 534 QTc: 486 Interpretive Statements SINUS MAXINE 1ST DEGREE BLOCK Left bundle branch block RATE SLOWER PACS ABSENT C/W 03/20/20 Electronically Signed on 06-24-2020 7:48:50 EST by Nicole Strickland
[2020-06-24] MEDS ORDERED: KETOROLAC 60MG 2ML VIAL As Ordered ONE (08:10)
[2020-06-24] MEDS ORDERED: SUCCINYLCHOLINE 100 MG/5 ML SYRINGE (J0330) As Ordered ONE (08:10)
[2020-06-24] MEDS ORDERED: ONDANSETRON 4MG/2ML VIAL As Ordered ONE (08:10)
[2020-06-24] MEDS ORDERED: dexameTHASONE 4 MG/ML 1ML VIAL (J1100 PER 1MG) As Ordered ONE (08:10)
--- NOTE | 2020-06-24 08:48 | REP ---
INDICATION: ERCP. COMPARISON: None. TECHNIQUE: Intraoperative fluoroscopic imaging using portable C-arm technique. FINDINGS: Images from ERCP examination demonstrate removal of common bile duct stent and moderate dilatation to the common bile duct and biliary tree. Cystic duct is truncated consistent with prior cholecystectomy. Total fluoroscopic time 46.2 seconds. IMPRESSION: Mild biliary dilatation likely compensatory. Evidence for prior cholecystectomy. <Electronically signed by Bakari Johnson > 06/24/20 0833
[2020-06-24] MEDS ORDERED: ONDANSETRON 4MG/2ML VIAL IV PRN (08:50)
[2020-06-24] MEDS ORDERED: LR 1,000 ML IV SCH (08:50)
[2020-06-24] MEDS ORDERED: fentaNYL 100 MCG/2 ML INJECTION (J3010) IV PRN (08:50)
[2020-06-24] MEDS ORDERED: METOCLOPRAMIDE INJ 10MG/2ML VIAL (J2765 PER 1) IV PRN (08:50)
--- NOTE | 2020-06-24 08:52 | ROOR ---
Patient Name: Glenroy Espinoza Procedure Date: 06/24/2020 7:25 AM Date of : 1950 Age: 70 Room: [facility] Gender: Male Note Status: Finalized Procedure: ERCP Indications: Common bile duct stricture, Biliary stent removal, Diagnostic sampling Providers: Fran Cook MD Referring MD: JERAMIE WHITAKER MD Requesting Provider: Medicines: Monitored Anesthesia Care Complications: No immediate complications. Procedure: Pre-Anesthesia Assessment: - Prior to the procedure, a History and Physical was performed, and patient medications and allergies were reviewed. The patient is competent. The risks and benefits of the procedure and the sedation options and risks were discussed with the patient. All questions were answered and informed consent was obtained. Patient identification and proposed procedure were verified by the physician, the nurse and the anesthesiologist in the procedure room. Mental Status Examination: alert and oriented. Airway Examination: normal oropharyngeal airway and neck mobility. Respiratory Examination: clear to auscultation. CV Examination: normal. Prophylactic Antibiotics: The patient does not require prophylactic antibiotics. Prior Anticoagulants: The patient has taken no previous anticoagulant or antiplatelet agents. ASA Grade Assessment: II - A patient with mild systemic disease. After reviewing the risks and benefits, the patient was deemed in satisfactory condition to undergo the procedure. The anesthesia plan was to use monitored anesthesia care (MAC). Immediately prior to administration of medications, the patient was re-assessed for adequacy to receive sedatives. The heart rate, respiratory rate, oxygen saturations, blood pressure, adequacy of pulmonary ventilation, and response to care were monitored throughout the procedure. The physical status of the patient was re-assessed after the procedure. The Duodenoscope was introduced through the mouth, and advanced to the duodenum and used to inject contrast into the bile duct. The ERCP was accomplished without difficulty. The patient tolerated the procedure well. Findings: A biliary stent was visible on the checker cashier film. The esophagus was successfully intubated under direct vision without detailed examination of the pharynx, larynx, and associated structures, and upper GI tract. The upper GI tract was grossly normal. The scope was passed through the upper GI tract under direct vision. A 15 mm non-bleeding diverticulum was found in the second portion of the duodenum. One plastic stent originating in the biliary tree was emerging from the major papilla. The stent was visibly patent. A biliary sphincterotomy had been performed. The sphincterotomy appeared open. The minor papilla was normal. One stent was removed from the biliary tree using a snare. The stent was found to be patent via the water column test. A 0.035 inch x 260 cm straight Hydra Jagwire was passed into the biliary tree. The 9 mm balloon was passed over the guidewire and the bile duct was then deeply cannulated. Contrast was injected. I personally interpreted the bile duct images. Ductal flow of contrast was adequate. Image quality was adequate. Contrast extended to the entire biliary tree. The biliary orifice was stenotic. This appeared indeterminate (neither benign nor malignant). The lower third of the main bile duct contained a localized irregularity. To discover objects, the biliary tree was swept with a 9 mm balloon starting at the bifurcation. Sludge was swept from the duct. Cells for cytology were obtained by brushing in the lower third of the main bile duct. Impression: - Non-bleeding duodenal diverticulum. - One visibly patent stent from the biliary tree was seen in the major papilla. - Prior biliary sphincterotomy appeared open. - The minor papilla appeared normal. - Biliary papillary stenosis, indeterminate. - An irregularity was found in the lower third of the main bile duct. - One stent was removed from the biliary tree. - The biliary tree was swept and sludge was found. - Cells for cytology obtained in the lower third of the main duct. Recommendation: - The patient will be observed post-procedure, until all discharge criteria are met. - Patient has a contact number available for emergencies. The signs and symptoms of potential delayed complications were discussed with the patient. Return to normal activities tomorrow. Written discharge instructions were provided to the patient. - Clear liquid diet - advance as tolerated to high fiber diet today. - Continue present medications. - Await cytology results. - Perform MRCP at appointment to be scheduled. - Return to GI clinic in [facility] (address [address], [address], [place] [address]) in 4 -- 6 weeks. Please call GI clinic @ [phone] for apppointment date and time. - Return to primary care physician. Procedure Code(s): --- Professional --- 26517, Endoscopic retrograde cholangiopancreatography (ERCP); with removal of foreign body(s) or stent(s) from biliary/pancreatic duct(s) 30313, Endoscopic retrograde cholangiopancreatography (ERCP); with removal of calculi/debris from biliary/pancreatic duct(s) 39757, 26, Endoscopic catheterization of the biliary ductal system, radiological supervision and interpretation Diagnosis Code(s): --- Professional --- Z96.89, Presence of other specified functional implants K83.1, Obstruction of bile duct Z46.59, Encounter for fitting and adjustment of other gastrointestinal appliance and device K57.10, Diverticulosis of small intestine without perforation or abscess without bleeding R93.2, Abnormal findings on diagnostic imaging of liver and biliary tract CPT copyright 2019 [employer]. All rights reserved. The codes documented in this report are preliminary and upon supply controller review may be revised to meet current compliance requirements. Fran Cook MD Fran Cook MD 06/24/2020 8:53:05 AM Electronically signed by Fran Cook MD Number of Addenda: 0 Note Initiated On: 06/24/2020 7:25 AM Estimated Blood Loss: Estimated blood loss: none.
[2020-06-24 10:05] VITALS: BP 170/83
== END 2020-06-24 10:15 | disposition home or self-care (01) ==
LOC: M SDC 06:13
PROVIDERS: ATTEND Internal Medicine Gastroenterology
DX: Z85.46 Personal history of malignant neoplasm of prostate (principal); K83.1 Obstruction of bile duct; Z96.89 Presence of other specified functional implants; Z46.59 Encounter for fitting and adjustment of other gastrointestinal appliance and device; R93.2 Abnormal findings on diagnostic imaging of liver and biliary tract; Z92.3 Personal history of irradiation; Z87.891 Personal history of nicotine dependence; Z79.899 Other long term (current) drug therapy
CPT/HCPCS: 43264; 43275; 76000; 88104; 93005; J0330; J1100; J1885; J2250; J2405; J3010; Q9967

== ENCOUNTER → 2020-07-22 | Outpatient (CLI) | payer MEDICARE ==
[~2020-07-22] MED LIST changes: -NS 1,000 ML IV ONE
== END ==
LOC: M RAD 13:15
PROVIDERS: ATTEND Internal Medicine Gastroenterology
DX: R93.2 Abnormal findings on diagnostic imaging of liver and biliary tract (principal); K83.1 Obstruction of bile duct

== ENCOUNTER → 2020-08-18 | Outpatient (CLI) | payer MEDICARE ==
[~2020-08-18] MED LIST changes: +PROHANCE 279.3MG/ML 15ML VIAL As Ordered ONE; +PROHANCE 279.3MG/ML 5ML VIAL As Ordered ONE
--- NOTE | 2020-08-19 09:03 | REP ---
INDICATION: ABNORMAL FINDINGS ON DX IMAGING OF LIVER AND BILIARY TRACT. COMPARISON: CT 03/30/2020 and 03/20/2020. TECHNIQUE: Multiple sequences obtained in the axial and coronal planes prior to and following the intravenous administration of 19 mL ProHance. MRCP sequences performed with MIP reconstruction images. FINDINGS: The superior aspect of the liver is not imaged. At the site of the hypervascular lesion in the posterior segment of the right lobe of the liver there is T2 signal hyperintensity. This measures approximately 16 x 9 mm. On postcontrast images there is a tangle of vessels at this location, enhancing on arterial phase postcontrast images, with transient geographic hyper perfusion. There is persistent enhancement on delayed images. This is consistent with a hemangioma. Patient has had a prior cholecystectomy. There is no intrahepatic or extrahepatic biliary dilatation. There is no stricture or filling defect in the common bile duct. There is no choledochal cyst. The pancreatic duct is normal in caliber. Pancreas demonstrates normal signal and normal enhancement with no mass or cyst. No abnormal signal or enhancement is seen in the spleen. The adrenal glands are normal. The upper half of the kidneys are imaged in both demonstrate multiple small subcentimeter T2 hyperintensities which show no definite enhancement most likely representing multiple subcentimeter cysts. There is no adenopathy or free fluid in the visualized abdomen. There is a hiatal hernia present. IMPRESSION: Hemangioma right lobe of the liver. Status post cholecystectomy. No biliary or pancreatic duct dilatation. No choledochal or pancreatic cyst. No other evidence of pancreatic lesion. <Electronically signed by Marcio Paredes > 08/19/20 0900
== END ==
LOC: M RAD 15:56
PROVIDERS: ATTEND Internal Medicine Gastroenterology
DX: D18.09 Hemangioma of other sites (principal); K83.1 Obstruction of bile duct; K44.9 Diaphragmatic hernia without obstruction or gangrene
CPT/HCPCS: 74183; A9576

== ENCOUNTER → 2020-11-02 | Outpatient (CLI) | payer MEDICARE ==
[~2020-11-02] MED LIST changes: -PROHANCE 279.3MG/ML 15ML VIAL As Ordered ONE; -PROHANCE 279.3MG/ML 5ML VIAL As Ordered ONE
--- NOTE | 2020-11-02 10:05 | REP ---
INDICATION: CONTUSION. COMPARISON: Comparison chest x-ray March 20, 2020.. TECHNIQUE: Five views including PA chest. FINDINGS: PA chest radiograph is unremarkable. There is no evidence of pneumothorax or hydrothorax. Mediastinum is not widened. The aorta is tortuous but unchanged. Heart is borderline also unchanged. Pulmonary vasculature is not increased. No infiltrate is seen. Multiple views of the right rib cage demonstrate intact right ribs. No bony destructive lesion is appreciated. There is a subtle cortical irregularity of the anterior end of the right 7th rib which may be an acute fracture. This should be correlated with area of tenderness on palpation. No other rib fracture is seen. IMPRESSION: Possible nondisplaced anterior right 7th rib fracture. Borderline heart size. Otherwise negative right rib rib series. <Electronically signed by Torito Marinelli > 11/02/20 1001
== END ==
LOC: M WUC 08:59
PROVIDERS: ATTEND Physician Assistant
DX: S20.211A Contusion of right front wall of thorax, initial encounter (principal); X58.XXXA Exposure to other specified factors, initial encounter; Y92.89 Other specified places as the place of occurrence of the external cause; Y93.9 Activity, unspecified; Y99.9 Unspecified external cause status

== ENCOUNTER 2021-08-18 21:54 | Emergency (ER) | payer MEDICARE ==
[~2021-08-18] VITALS: Ht 177.8 cm; Wt 91.1 kg
[~2021-08-18 21:54] MED LIST changes: +OMEP-173 PO; -OMEP-218 PO
[2021-08-18 21:56] VITALS: BP 138/81
== END 2021-08-18 23:40 | disposition left against medical advice (07) ==
LOC: M ED 21:54
DX: Z53.21 Procedure and treatment not carried out due to patient leaving prior to being seen by health care provider (principal)

== ENCOUNTER 2021-08-23 19:05 | Observation (INO) | payer MEDICARE ==
[~2021-08-23] VITALS: Ht 175.3 cm; Wt 92.0 kg
[2021-08-23 19:52] LABS: HEMATOCRIT 41.3 % (42.0-52.0); HEMOGLOBIN 14.2 g/dl (13.5-17.5); MEAN CORPUSCULAR HEMOGLOBIN 30.7 pg (27.0-33.0); MEAN CORPUSCULAR HGB CONC 34.4 g/dl (32.0-36.5); MEAN CORPUSCULAR VOLUME 89.2 fl (80.0-96.0); PLATELET COUNT, AUTOMATED 212 10^3/uL (150-450); RED BLOOD COUNT 4.63 10^6/uL (4.30-6.10); WHITE BLOOD COUNT 10.5 10^3/uL (4.0-10.0)
[2021-08-23 20:10] LABS: AMPHETAMINES LEVEL URINE NEGATIVE (NEGATIVE); BARBITURATES URINE NEGATIVE (NEGATIVE); BENZODIAZEPINES URINE NEGATIVE (NEGATIVE); CANNABINOIDS URINE NEGATIVE (NEGATIVE); COCAINE METABOLITE URINE NEGATIVE (NEGATIVE); METHADONE URINE NEGATIVE (NEGATIVE); OPIATES URINE NEGATIVE (NEGATIVE); PHENCYCLIDINE URINE NEGATIVE (NEGATIVE)
[2021-08-23 20:19] LABS: ACETAMINOPHEN LEVEL < 2.0 UG/ML (10.0-30.0); ALBUMIN 4.2 GM/DL (3.2-5.2); ALT/SGPT 21 U/L (12-78); BILIRUBIN,DIRECT 0.5 MG/DL (0.0-0.2); BILIRUBIN,TOTAL 1.9 MG/DL (0.2-1.0); BLOOD UREA NITROGEN 9 MG/DL (7-18); CALCIUM LEVEL 9.3 MG/DL (8.8-10.2); CARBON DIOXIDE LEVEL 24 MEQ/L (21-32); CHLORIDE LEVEL 113 MEQ/L (98-107); ETHYL ALCOHOL (ETHANOL) < 0.003 % (0.000-0.010); GLOMERULAR FILTRATION RATE > 60.0 (>42); GLUCOSE, FASTING 109 MG/DL (70-100); POTASSIUM SERUM 4.1 MEQ/L (3.5-5.1); SALICYLATE LEVEL < 1.7 MG/DL (5.0-30.0); SODIUM LEVEL 143 MEQ/L (136-145); THYROID STIMULATING HORMONE 0.637 uIU/ML (0.358-3.740); TOTAL PROTEIN 6.8 GM/DL (6.4-8.2)
[2021-08-23 21:23] LABS: LITHIUM LEVEL 1.43 MEQ/L (0.60-1.20)
[2021-08-23 22:09] LABS: OSMOLALITY SERUM 292 MOSM/KG (280-301)
[2021-08-23] MEDS ORDERED: NS 1,000 ML IV ONE (22:35)
[2021-08-23 23:32] LABS: RSV AMPLIFICATION NEGATIVE (NEGATIVE)
[2021-08-24] MEDS ORDERED: TRAZ-252 PO (00:45)
[2021-08-24] MEDS ORDERED: HOME MED LIST COMPLETE! XX SCH (00:50)
[2021-08-24] MEDS ORDERED: ACETAMINOPHEN TAB 650MG DOSE (2X325MG) PO PRN (01:35)
[2021-08-24] MEDS ORDERED: OLANZapine INTRAMUSCULAR 10MG VIAL IM ONE ×2 (04:20→12:35)
[2021-08-24] MEDS ORDERED: amLODIPine 5 MG TAB PO ONE (06:00)
[2021-08-24 07:37] LABS: BLOOD UREA NITROGEN 8 MG/DL (7-18); CARBON DIOXIDE LEVEL 21 MEQ/L (21-32); CHLORIDE LEVEL 118 MEQ/L (98-107); CREATININE FOR GFR 0.75 MG/DL (0.70-1.30); GLOMERULAR FILTRATION RATE > 60.0 (>42); GLUCOSE, FASTING 96 MG/DL (70-100); MAGNESIUM LEVEL 2.7 MG/DL (1.8-2.4); POTASSIUM SERUM 3.5 MEQ/L (3.5-5.1); SODIUM LEVEL 145 MEQ/L (136-145)
[2021-08-24 07:40] VITALS: BP 139/86
[2021-08-24] MEDS: OMEPRAZOLE 20MG CAP PO SCH (09:51)
[2021-08-24] MEDS: predniSONE 5 MG TAB PO SCH ×2 (09:51→13:19)
[2021-08-24 15:30] VITALS: BP 140/86
[2021-08-24] MEDS: traZODone 50 MG TAB PO SCH (20:02)
[2021-08-24 20:52] VITALS: BP 142/82
[2021-08-24] MEDS ORDERED: QUEtiapine FUMARATE 25 MG TAB PO ONE (21:35)
[2021-08-25] MEDS ORDERED: LORazepam 0.5 MG TAB PO ONE (03:15)
[2021-08-25] MEDS ORDERED: OLANZapine INTRAMUSCULAR 10MG VIAL IM ONE (04:30)
[2021-08-25 06:00] VITALS: BP 137/88
[2021-08-25] MEDS: predniSONE 5 MG TAB PO SCH ×2 (08:13→20:23)
[2021-08-25] MEDS: OMEPRAZOLE 20MG CAP PO SCH (08:13)
[2021-08-25] MEDS ORDERED: OLANZapine INTRAMUSCULAR 10MG VIAL IM PRN (13:10)
[2021-08-25] MEDS ORDERED: OLANZapine ORAL DISINTEGRATING TAB 5MG PO PRN (13:15)
[2021-08-25 14:00] VITALS: BP 108/79
[2021-08-25] MEDS: ARIPiprazole 2 MG TAB PO PRN (16:33)
[2021-08-25 19:47] VITALS: BP 103/62
[2021-08-25] MEDS: APIXABAN 5 MG TAB (ELIQUIS) PO SCH (20:23)
[2021-08-25] MEDS: traZODone 50 MG TAB PO SCH (20:23)
[2021-08-25] MEDS ORDERED: RAMELTEON 8 MG TAB (ROZEREM) PO SCH (21:00)
[2021-08-25 21:13] VITALS: BP 123/89
[2021-08-26] MEDS: ARIPiprazole 2 MG TAB PO PRN (03:03)
[2021-08-26 06:25] VITALS: BP 103/73
[2021-08-26 07:45] LABS: HEMATOCRIT 39.5 % (42.0-52.0); HEMOGLOBIN 13.3 g/dl (13.5-17.5); MEAN CORPUSCULAR HEMOGLOBIN 30.2 pg (27.0-33.0); MEAN CORPUSCULAR HGB CONC 33.7 g/dl (32.0-36.5); MEAN CORPUSCULAR VOLUME 89.6 fl (80.0-96.0); PLATELET COUNT, AUTOMATED 184 10^3/uL (150-450); RED BLOOD COUNT 4.41 10^6/uL (4.30-6.10); WHITE BLOOD COUNT 9.7 10^3/uL (4.0-10.0)
[2021-08-26 08:19] LABS: ALBUMIN 3.8 GM/DL (3.2-5.2); ALT/SGPT 20 U/L (12-78); BILIRUBIN,TOTAL 2.5 MG/DL (0.2-1.0); BLOOD UREA NITROGEN 13 MG/DL (7-18); CALCIUM LEVEL 9.2 MG/DL (8.8-10.2); CARBON DIOXIDE LEVEL 20 MEQ/L (21-32); CHLORIDE LEVEL 116 MEQ/L (98-107); CREATININE FOR GFR 0.74 MG/DL (0.70-1.30); GLOMERULAR FILTRATION RATE > 60.0 (>42); GLUCOSE, FASTING 123 MG/DL (70-100); MAGNESIUM LEVEL 2.4 MG/DL (1.8-2.4); POTASSIUM SERUM 3.5 MEQ/L (3.5-5.1); SODIUM LEVEL 145 MEQ/L (136-145); TOTAL PROTEIN 6.1 GM/DL (6.4-8.2)
[2021-08-26] MEDS ORDERED: ACYCLOVIR 1,000 MG in D5W 250 ML IV SCH (08:50)
[2021-08-26] MEDS: APIXABAN 5 MG TAB (ELIQUIS) PO SCH (10:03)
[2021-08-26] MEDS: predniSONE 5 MG TAB PO SCH (10:03)
[2021-08-26] MEDS: OMEPRAZOLE 20MG CAP PO SCH (10:03)
[2021-08-26] MEDS ORDERED: DOCUSATE SODIUM 100MG CAPSULE PO PRN (12:40)
[2021-08-26 14:00] VITALS: BP 113/84
== END 2021-08-26 15:20 | disposition home or self-care (01) ==
LOC: M ED 19:05 → M ED INP 19:06 → ENRESERV 08-24 14:40 → M MS5PR 08-24 15:25
PROVIDERS: ADMIT Internal Medicine; ATTEND Internal Medicine
DX: R46.89 Other symptoms and signs involving appearance and behavior (principal); G04.81 Other encephalitis and encephalomyelitis; Z86.011 Personal history of benign neoplasm of the brain; Z85.46 Personal history of malignant neoplasm of prostate; K21.9 Gastro-esophageal reflux disease without esophagitis; K59.00 Constipation, unspecified; F31.9 Bipolar disorder, unspecified; Z79.899 Other long term (current) drug therapy; Z92.3 Personal history of irradiation; Z92.21 Personal history of antineoplastic chemotherapy; Z86.16 Personal history of COVID-19; Z79.52 Long term (current) use of systemic steroids
CPT/HCPCS: 36415; 70450; 70551; 71045; 80048; 80053; 80076; 80143; 80178; 80307; 81001; 82077; 82140; 83605; 83735; 83930; 84443; 84484; 85027; 87040; 87631; 92610; 93005; 93041; 93306; 96372; 96374; 99285; G0378; J7512

== ENCOUNTER 2023-05-15 10:04 | Emergency (ER) | payer MEDICARE ==
[~2023-05-15] VITALS: Ht 177.8 cm; Wt 93.0 kg
[~2023-05-15 10:04] MED LIST changes: +TRAZ-252 PO
[2023-05-15] MEDS ORDERED: LITH300C PO (10:15)
[2023-05-15] MEDS ORDERED: WARF-23 PO (10:15)
[2023-05-15] MEDS ORDERED: THERTAB52 PO (10:15)
[2023-05-15] MEDS ORDERED: NAPR-885 PO (10:15)
[2023-05-15] MEDS ORDERED: ACET32TAB PO (10:15)
[2023-05-15] MEDS ORDERED: METO1TAB87 PO (10:15)
[2023-05-15] MEDS ORDERED: ABIR250T PO (10:15)
[2023-05-15 11:13] LABS: BASO % 0.4 % (0.0-1.0); EOS # 0.2 10^3/uL (0.0-0.5); EOS % 1.9 % (0.0-3.0); HEMATOCRIT 42.7 % (42.0-52.0); HEMOGLOBIN 14.6 g/dl (13.5-17.5); LYMPH # 2.2 10^3/uL (1.5-5.0); MEAN CORPUSCULAR HEMOGLOBIN 30.4 pg (27.0-33.0); MEAN CORPUSCULAR HGB CONC 34.2 g/dl (32.0-36.5); MEAN CORPUSCULAR VOLUME 88.8 fl (80.0-96.0); MONO # 0.8 10^3/uL (0.0-0.8); MONO % 8.3 % (2.0-8.0); NEUTROPHILS # 5.9 10^3/uL (1.5-8.5); PLATELET COUNT, AUTOMATED 152 10^3/uL (150-450); RED BLOOD COUNT 4.81 10^6/uL (4.30-6.10); WHITE BLOOD COUNT 9.1 10^3/uL (4.0-10.0)
[2023-05-15 11:45] LABS: ETHYL ALCOHOL (ETHANOL) < 0.003 % (0.000-0.010)
[2023-05-15 11:46] LABS: SALICYLATE LEVEL < 3.0 MG/DL (<30)
[2023-05-15 11:47] LABS: ALBUMIN 3.7 G/DL (3.2-5.2); ALKALINE PHOSPHATASE 81 U/L (46-116); ALT/SGPT 16 U/L (7.0-40); AST/SGOT 12 U/L (<34); BILIRUBIN,DIRECT 0.2 MG/DL (<0.4); BLOOD UREA NITROGEN 17 MG/DL (9-23); CARBON DIOXIDE LEVEL 24 MMOL/L (20-31); CHLORIDE LEVEL 109 MMOL/L (98-107); CREATININE FOR GFR 0.75 MG/DL (0.70-1.30); GLOMERULAR FILTRATION RATE > 60.0 (>42); GLUCOSE, FASTING 103 MG/DL (74-106); POTASSIUM SERUM 3.9 MMOL/L (3.5-5.1); SODIUM LEVEL 139 MMOL/L (136-145); TOTAL PROTEIN 5.9 G/DL (5.7-8.2)
[2023-05-15 11:49] LABS: THYROID STIMULATING HORMONE 1.845 uIU/ML (0.55-4.78)
[2023-05-15 12:08] LABS: AMPHETAMINES LEVEL URINE NEGATIVE (NEGATIVE); BARBITURATES URINE NEGATIVE (NEGATIVE); BENZODIAZEPINES URINE NEGATIVE (NEGATIVE); CANNABINOIDS URINE NEGATIVE (NEGATIVE); COCAINE METABOLITE URINE NEGATIVE (NEGATIVE); METHADONE URINE NEGATIVE (NEGATIVE); OPIATES URINE NEGATIVE (NEGATIVE); PHENCYCLIDINE URINE NEGATIVE (NEGATIVE)
[2023-05-15 12:28] LABS: LITHIUM LEVEL 1.92 MMOL/L (1.0-1.20)
[2023-05-15 13:04] LABS: INR 1.49; PROTHROMBIN TIME 17.6 SECONDS (12.5-14.5)
[2023-05-15] MEDS ORDERED: NS 1,000 ML IV SCH (13:15)
[2023-05-15] MEDS ORDERED: NS 500 ML IV ONE (13:15)
[2023-05-15] MEDS ORDERED: TRIA1CR80 TOP (22:03)
[2023-05-15] MEDS ORDERED: TRIA0.5O EXT (22:10)
[2023-05-15] MEDS ORDERED: HOME MED LIST COMPLETE! XX SCH (22:20)
[2023-05-15 22:40] VITALS: BP 170/112; TEMP 96.8; O2SAT 98
== END 2023-05-15 22:42 | disposition home or self-care (01) ==
LOC: M ED 10:04
DX: R79.89 Other specified abnormal findings of blood chemistry (principal); F31.9 Bipolar disorder, unspecified; E78.5 Hyperlipidemia, unspecified; I48.91 Unspecified atrial fibrillation; I44.7 Left bundle-branch block, unspecified; Z79.899 Other long term (current) drug therapy; Z79.810 Long term (current) use of selective estrogen receptor modulators (SERMs)